=== PATIENT | female | born 1975 ===

== ENCOUNTER 2024-10-20 13:56 | Outpatient (AMB) | payer BC, SELFPAY ==
--- NOTE | 2024-10-20 14:06 | A.OFFPC_ITS ---
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 Allergies Seasonal Allergies Allergy (Verified 10/20/24 14:16) Runny Nose Tobacco use date assessed: 10/20/24 Dental Screening Dental Screen Date: 10/20/24 Did you have a dental visit in the last 12 months?: Yes Did you have a dental problem in the last 6 months where you did not have access to dental care?: No Was dental information given to patient?: Patient has dentist HPI HPI Comments History of Present Illness Details This is a 49-year-old female with a past medical history of ovarian cystectomy, migraines, seasonal allergies, anemia and leukopenia presenting to establish care. She transferred from [facility]. She is due for a physical. The patient is originally from [facility]. She tries to travel there once a year with her . She has a lump on the upper back for a couple of years. It has enlarged during the past year. Sometimes it causes mild pain. Denies paresthesias or weakness. She has no personal history of malignancy. She sees [facility] in [place], [place] - Dr. Samina Freeman. She had a mammogram in May which showed dense breast tissue. She had a follow up MRI last Sunday and is waiting for the results. She has never had a colonoscopy or Cologuard test. We discussed this at length today and the purpose to screen for colon cancer. She would like to think about it and discuss it with her before making a decision about proceeding with either test. She has no known family history of colon cancer. Dental and eye exams are up to date. ROS: Constitutional: No unexplained weight loss, fever, chills, fatigue or night sweats. Eyes: No vision changes, blurry vision, double vision, eye pain, eye redness, eye discharge. ENT: No hearing loss, sneezing, congestion, runny nose or sore throat. Respiratory: No shortness of breath, cough or sputum production. Cardiovascular: No chest pain, chest pressure or chest discomfort. No palpitations or pedal edema. Gastrointestinal: No anorexia, nausea, vomiting or diarrhea. No abdominal pain or blood in stool. Genitourinary: No dysuria, hematuria, urinary frequency. Neurologic: No headache, dizziness, syncope, unilateral weakness, ataxia, numbness or tingling in the extremities. Musculoskeletal: See HPI Hematologic/Lymphatics: No bleeding or bruising. No painful lymph nodes. Skin: No rash or itching. Endocrine: No cold or heat intolerance. No polyuria or polydipsia. Psychiatric: No depression or anxiety. No SI/HI. Physical exam: Constitutional: Alert, in no distress. Head: Normocephalic. Eyes: Pupils are equal, round and reactive to light. Extraocular muscles intact. Ear, Nose and Throat: Canals clear. TMs normal. Normal nasal mucosa. No nasal discharge. No oral lesions. Neck: Supple, Full range of motion. No lymphadenopathy. No palpable thyroid masses. Respiratory: Clear to auscultation. Cardiovascular: S1 S2 regular. No murmurs. No carotid bruits. Gastrointestinal: Abdomen soft, non-tender, non-distended. Normal bowel sounds. No palpable masses. Neurologic: No focal neurological deficits. Symmetric patellar reflexes. Moves all extremities spontaneously. Sensation intact bilaterally. Skin: No rashes Back: No midline spinal tenderness. There is 4.5 cm round, nontender, soft tissue mass on the upper back left of the spine. Extremities: Warm and well perfused. No clubbing, cyanosis or edema. 3+ peripheral pulses bilaterally. Psychiatric: Normal mood and affect [facility] Medical History (Updated 10/21/24 @ 12:42 by GEOFF Staples) Mass on back Anemia Screening for cardiovascular condition Routine physical examination Cervicalgia Lumbar disc herniation Lower back pain Ovarian cyst Social History (Updated 10/20/24 @ 14:19 by Sofy Anderson MA) Housing: House Alcohol intake: never Patient Tobacco Use Status: Never used Tobacco e-Cigarette/Vaping Use: Never Used Second Hand Smoke Exposure: No service: No Current occupational status: employed Current occupation: [employer] Current occupational exposures/hazards: No Cognitive needs: No Hearing needs: No Vision needs: No Questionnaire PHQ-9 Over the last 2 weeks, how often have you been bothered by any of the following problems? 1. Little interest or pleasure in doing things: not at all 2. Feeling down, depressed, or hopeless: not at all 3. Trouble falling or staying asleep, or sleeping too much: not at all 4. Feeling tired or having little energy: not at all 5. Poor appetite or overeating: not at all 6. Feeling bad about yourself - or that you are a failure or have let yourself or your family down: not at all 7. Trouble concentrating on things, such as reading the newspaper or watching television: not at all 8. Moving or speaking so slowly that other people could have noticed. Or the opposite - being so fidgety or restless that you have been moving around a lot more than usual: not at all 9. Thoughts that you would be better off or of hurting yourself in some way: not at all Total score: 0 Depression Screening Interpretation: Negative Depression Screening Done: Yes 32515 - PHQ-9 Billing: Yes Source: Developed by Drs. Sorin Helms, Laurence Rodriguez, Florentino Espino and colleagues, with an educational braeden from [employer]. Thrive Questionnaire Date Thrive assessed: 10/20/24 I am a: Patient What is your living situation today?: I have a steady place to live Within the past 12 months, did the food you bought not last and you didn't have the money to get more?: Never true Within the past 12 months, did you worry whether your food would run out before you got money to buy more?: Never true Do you have trouble paying for medicines?: No Do you have trouble getting transportation to medical appointments?: No Do you have trouble paying your heating and electricity bill?: No Do you have trouble taking care of your child, family member or friend?: No Are you interested in more education?: No Please select the resources that you would like help with: None Currently or been in a relationship where the following occur: No concerns reported THRIVE Score: 0 AUDIT C Alcohol Use Questionnaire (AUDIT-C) 1. How often do you have a drink containing alcohol?: Never 3. How often do you have six or more drinks on one occasion?: Never Total Score: 0 HILARY-7 AMB Questionnaire HILARY-7 Feeling nervous, anxious, or on edge: 0 = Not at all Not being able to stop or control worryin = Not at all Worrying too much about different things: 0 = Not at all Trouble relaxin = Not at all Being so restless that it is hard to sit still: 0 = Not at all Becoming easily annoyed or irritable: 0 = Not at all Feeling afraid as if something awful might happen: 0 = Not at all Total HILARY-7 score (0-4 normal; 5-9 mild; 10-14 moderate; 15-21 severe): 0 Source: Developed by Drs. Sorin Helms, Laurence Rodriguez, Florentino Espino and colleagues, with an educational braeden from [employer]. HILARY-7 Assessment Billing HILARY-7 Assessment Tool: HILARY-7 Assessment 46269 Physical exam (Primary Care) Vital Signs: Last Vital Signs Temp 98.6 F 10/20/24 14:19 Pulse 90 10/20/24 14:19 BP 98/60 10/20/24 14:19 Pulse Ox 98 10/20/24 14:19 Oxygen Delivery Method Room Air 10/20/24 14:19 BMI result Body Mass Index 21.0 Tobacco/Smoking Status: Tobacco use Status Tobacco use date assessed 10/20/24 10/20/24 14:23 Patient Tobacco Use Status Never used Tobacco 10/20/24 14:23 e-Cigarette/Vaping Use Never Used 10/20/24 14:23 PHQ-9: PHQ-9 Score PHQ-9: Total score 0 10/20/24 15:03 Depression Screening Interpretation: Negative Thrive Assessment: Date of Thrive Assessment Date Thrive assessed 10/20/24 10/20/24 14:27 Currently or been in a relationship where the following occur: No concerns reported Immunizations Boostrix Tdap 2.5 Lf unit-8 mcg-5 Lf/0.5 mL intramuscular syringe Performing Provider: GEOFF Staples Performing Location[place] [facility] Administered by: Sofy Anderson MA on 10/20/24 15:03 Dose Route Admin Location Dispensed Lot Number Expiration Date [facility] Picker Box Operator 0.5 mL IM Left Deltoid 0.5 mL [id number] 01/20/25 03505-838-98 [employer] Total Dispensed Waste 0.5 mL 0 % VIS Given Date VIS Provided VIS Publication Date 10/20/24 Single Vaccine 20 Eligibility Eligibility Date Funding Source Not [facility] Eligible 10/20/24 Private Coding Level of Care Code New Pt Prev Care 40-64y(77529) Diagnoses Routine physical examination Z00.00 Screening for cardiovascular condition Z13.6 Mass on back R22.2 Anemia D64.9 Additional Codes HILARY-7 Assessment Billing - HILARY-7 Assessment Tool: HILARY-7 Assessment 22709 ([id number]) PHQ-9 - 69430 - PHQ-9 Billing: Yes ([id number]) Assessment & Plan Assessment & Plan (1) Routine physical examination: Code(s): Z00.00 - Encounter for general adult medical examination without abnormal findings Category: Medical Plan: Patient is seen today for a routine physical. As part of this visit we reviewed the following issues, which are considered and essential part of preventative health in this age group: - Breast Cancer screening - Annual Online Journalist exam - Screening for colon cancer - Blood pressure screening - Cholesterol screening - Osteoporosis prevention including calcium/vitamin D intake, weight bearing exercise & smoking cessation - Nutritional and exercise counseling - Counseling of injury prevention including fire prevention, smoke alarms and seat belt usage - Screening for depression - Education about skin cancer - Recommendations about immunizations - Recommendation of an eye exam - Screening for substance abuse (2) Screening for cardiovascular condition: Code(s): Z13.6 - Encounter for screening for cardiovascular disorders Category: Medical (3) Mass on back: Code(s): R22.2 - Localized swelling, mass and lump, trunk Category: Medical Plan: We discussed potential etiologies including a lipoma, cyst and less likely malignancy. Proceed with ultrasound of the soft tissues for initial evaluation and referral to General surgery. (4) Anemia: Code(s): D64.9 - Anemia, unspecified Category: Medical Plan: Check labs for anemia. Plan Follow up in 1 year for annual physical exam. Orders: Orders TSH reflex Free T4 10/20/24 D64.9 - Anemia, unspecified, M54.2 - Cervicalgia, Z00.00 - Encounter for general adult medical examination without abnormal findings, Z13.6 - Encounter for screening for cardiovascular disorders Lipid Panel 10/20/24 D64.9 - Anemia, unspecified, E78.5 - Hyperlipidemia, unspecified, M54.2 - Cervicalgia, Z00.00 - Encounter for general adult medical examination without abnormal findings, Z13.6 - Encounter for screening for cardiovascular disorders Comprehensive Met. Panel 10/20/24 D64.9 - Anemia, unspecified, M54.2 - Cervicalgia, Z00.00 - Encounter for general adult medical examination without abnormal findings, Z13.6 - Encounter for screening for cardiovascular disorders IRON PROFILE 10/20/24 D64.9 - Anemia, unspecified, M54.2 - Cervicalgia, Z00.00 - Encounter for general adult medical examination without abnormal findings, Z13.6 - Encounter for screening for cardiovascular disorders Ferritin 10/20/24 D64.9 - Anemia, unspecified, M54.2 - Cervicalgia, Z00.00 - Encounter for general adult medical examination without abnormal findings, Z13.6 - Encounter for screening for cardiovascular disorders Vitamin D 25-OH (D2 and D3) 10/20/24 D64.9 - Anemia, unspecified, M54.2 - Cervicalgia, M85.80 - Other specified disorders of bone density and structure, unspecified site, Z00.00 - Encounter for general adult medical examination without abnormal findings, Z13.6 - Encounter for screening for cardiovascular disorders TDaP Immunization 10/20/24 Z23 - Encounter for immunization Vitamin B12 and Folate 10/20/24 D64.9 - Anemia, unspecified, M54.2 - Cervicalgia, Z00.00 - Encounter for general adult medical examination without abnormal findings, Z13.6 - Encounter for screening for cardiovascular disorders Complete Blood Count Auto Diff 10/20/24 D64.9 - Anemia, unspecified, M54.2 - Cervicalgia, Z00.00 - Encounter for general adult medical examination without abnormal findings, Z13.6 - Encounter for screening for cardiovascular disorders US soft tiss head and/or neck Today R22.2 - Localized swelling, mass and lump, trunk
[2024-10-20 14:19] VITALS: BP 98/60; PULSE 90; TEMP 37; O2SAT 98; BMI 21.0
--- OUTSIDE RECORDS SUMMARY | 2024-10-20 14:48 | XMS_ITS | Clinical Summary ---
Author Organization [facility] Address [address] [place] [address] Care Team Providers Care Vessel Welder Name Role Phone Te Barker MD Primary Care Provider [phone] Allergies Active Allergy Reactions Criticality Noted Date Comments Oxycodone Nausea And Vomiting 01/05/2017 Medications Medication Sig Dispensed Refills Start Date End Date Status oxyCODONE-acetaminophe n (PERCOCET) 5-325 MG per tablet Take 2 tablets by mouth every 4 (four) hours as needed for pain. 40 tablet 0 12/18/2016 Active ondansetron (ZOFRAN) 4 MG tablet Take 1 tablet (4 mg total) by mouth every 6 (six) hours as needed for nausea. 20 tablet 0 12/20/2016 Active dexamethasone (DECADRON) 4 MG tabletIndications:Lumb ar radiculopathy Take 1 tablet (4 mg total) by mouth 4 (four) times a day. 16 tablet 0 12/21/2016 Active gabapentin (NEURONTIN) 300 MG capsuleIndications:Lum bar radiculopathy, chronic Take 1 capsule (300 mg total) by mouth 2 (two) times a day. 90 capsule 1 02/23/2017 Active Active Problems Problem Noted Date Diagnosed Date Lumbar radiculopathy, right Social History Tobacco Use Types Packs/Day Years Used Date Smoking Tobacco: Never Alcohol Use Standard Drinks/Week Comments No 0 (1 standard drink = 0.6 oz pur e alcohol) Sex and Gender Information Value Date Recorded Sex Assigned at Not on file Gender Identity Not on file Sexual Orientation Not on file Last Filed Vital Signs Vital Sign Reading Time Taken Comments Blood Pressure 118/68 02/23/2017 9:18 AM EST Pulse 95 12/18/2016 11:39 AM EDT Temperature 36.1 C (97 F) 12/18/2016 11:15 AM EDT Respiratory Rate 17 12/18/2016 11:15 AM EDT Oxygen Saturation 98% 12/18/2016 11:39 AM EDT Inhaled Oxygen Concentration - - Weight 58.1 kg (128 lb) 02/23/2017 9:18 AM EST Height 152.4 cm (5') 02/23/2017 9:18 AM EST Body Mass Index 25 02/23/2017 9:18 AM EST Plan of Treatment Health Maintenance Due Date Last Done Comments Hepatitis B Vaccines (1 of 3 - 3-dose series) 1977 Hepatitis C Screening 1975 COVID-19 Vaccine (#1) 1977 Depression Screening 1989 Preventative Health Evaluation 1995 DTap / Tdap / Td (1 - Tdap) 1996 Cervical Cancer Screening (P ap Smear) 1998 Colon Cancer Screening (Colonoscopy) 2022 Influenza Vaccine (#1) 2024 Pneumococcal Vaccine Aged Out No long er eligible based on patient's age to complete this topic RSV Ped < 20 months Aged Out No longe r eligible based on patient's age to complete this topic Medical Devices Implanted Type Area Paper Colorer Device Identifier Shelf Expiration Date Model / Serial / Lot Sponge Surgiflo 8ml Hemostatic Matrix Absorbable Latex Free - [id number] - [id number] Implanted:Qty: 1 on 12/18/2016 by David Hurtado [place] [facility] Hemostatic Agent Right: Spine Lumbar [employer] 07/30/2018 [id number] / / [id number] Advance Directives For more information, please contact: [phone] Documents on File Type Date Recorded Patient Medical Office Worker Expl anation Advance Directive and Living Will 12/18/2016 6:17 AM Advance Directive and Living Will 12/18/2016 6:15 AM Care Teams Vessel Welder Relationship Specialty Start Date End Date Te Barker MD [address] [place] [address] PCP - General Internal Medicine 12/01/16
--- OUTSIDE RECORDS SUMMARY | 2024-10-20 14:48 | XMS_ITS | Clinical Summary ---
Author Organization [facility] Address [address] [place] [phone] Phone Care Team Providers Care Shoe Puller Name Role Phone Hector Matthews MD Primary Care Provider + Allergies Active Allergy Reactions Criticality Noted Date Comments Oxycodone Nausea And Vomiting 01/05/2017 Medications MULTIVITAMIN ORAL Take by mouth. Active ferrous sulfate (IRON ORAL) Take by mouth. Active ascorbic acid (VITAMIN C ORAL) Take by mouth. Active multivitamin with minerals (HAIR,SKIN AND NAILS ORAL) Take by mouth. Active ubidecarenone (CO Q-10 ORAL) Take by mouth. Active ibuprofen (ADVIL,MOTRIN) 200 MG tablet Take 200 mg by mouth every 6 (six) hours as needed for pain (specific location in comments). Active diphenhydrAMINE (BENADRYL) 25 mg tablet Take 25 mg by mouth nightly at bedtime as needed for sleep. Active vitamins A,C,E-zinc-colleen er (PRESERVISION AREDS) [id number] myph-xz-vxuf Cap Take 1 capsule by mouth 2 (two) times a day with meals. Active clindamycin (CLEOCIN T) 1 % lotion APPLY ONCE DAILY TO FACE 05/24/2020 Active sulfamethoxazol e-trimethoprim (BACTRIM DS) 800-160 mg per tablet Take 1 tablet by mouth daily. 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 Episodic treatment with Valtrex discussed with patient and her . May consider suppressive treatment if recurring lesions occur. Will provide medication for additional outbreak should it occur. Patient advised to take Valtrex 1 tab p.o. twice daily x3 days. Information on HSV provided. Cervical high risk HPV (human papillomavirus) te st positive 05/01/2018 Overview (07/12/2020): 07/2019 NIL, Neg HPV. Repeat co-testing in 1 yr. 05/2019- Neg pap, +HPV 2013, 2016 with normal pap; 2018 with ASC-H Pap smear of cervix with ASCUS, cannot exclude H GSIL 05/01/2018 Overview (05/01/2018): 2018- neg colpo biopsies and neg ECC. Tinnitus 03/06/2013 Overview (05/22/2014): Tinnitus Immunizations Immunization Administration Dates Next Due HPV9 11/17/2019,07/15/2019,05/12/2019 Family History Medical History Relation Comments Diabetes Father Type 2 with onse t ?50s --pt not close to him and doesn't know hx Tuberculosis Mother age 37 Relation Status Comments Father Alive Mother Social History Tobacco Use Types Packs/Day Years Used Date Smoking Tobacco: Never Smokeless Tobacco: Never Alcohol Use Standard Drinks/Week Comments No 0 (1 standard drink = 0.6 oz pur e alcohol) Education Answer Date Recorded Are you interested in more education? Not on ramy e 07/27/2022 Are you concerned about learning? Not on file 07/27/2022 No 07/27/2022 No 07/27/2022 Digital Access Answer Date Recorded No 08/28/2022 No 08/28/2022 No 08/28/2022 Reliable internet access at home? Not on file 08/28/2022 Device with a working camera? 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 Not on file Not on file Not on file Last Filed Vital Signs Vital Sign Reading Time Taken Comments Blood Pressure 100/62 07/05/2020 10:35 AM EDT Pulse - - Temperature - - Respiratory Rate - - Oxygen Saturation - - Inhaled Oxygen Concentration - - Weight 53.1 kg (117 lb) 07/05/2020 10:35 AM EDT Height 149.9 cm (4' 11 ) 07/05/2020 10:35 AM EDT Body Mass Index 23.63 07/05/2020 10:35 AM EDT Plan of Treatment Health Maintenance Due Date Last Done Comments Adult Td,Tdap Booster 1977 LIPID PANEL 1977 DEPRESSION SCREENING 1989 HEPATITIS C SCREENING 1995 HIV ONE-TIME SCREENING (18-65 YEARS) 1995 MAMMOGRAM 2017 PAP SMEAR 07/05/2021 07/05/2020, 05/31, 06/16/2019, Additional history exists COLOGUARD 2022 COLONOSCOPY 2022 COLORECTAL CANCER SCREENING 2022 FIT TEST 2022 FOBT 2022 SIGMOIDOSCOPY 2022 VIRTUAL COLONOSCOPY 2022 COVID-19 VACCINE ( season) 2023 2021 SMOKING STATUS SCREENING (Once After 26 Yrs) Completed 05/05/2019 HEPATITIS A VACCINES Aged Out No long er eligible based on patient's age to complete this topic HIB VACCINES Aged Out No longer eligi ble based on patient's age to complete this topic MENINGOCOCCAL VACCINES (ACWY) Aged Out No longer eligible based on patient's age to complete this topic MENINGOCOCCAL VACCINES (B) Aged Out N o longer eligible based on patient's age to complete this topic PNEUMOCOCCAL VACCINES (0-49 years) Aged Out No longer eligible based on patient's age to complete this topic Medical Devices Not on file Procedures Procedure Name Priority Date/Time Associated Diagnosis Comments PAP TEST Routine 07/05/2020 12:00 AM EDT from Last 3 Months or Most Recently Relevant to Health Maintenance Results * Pap Smear (07/05/2020 12:00 AM EDT) 07/05/2020 07/06/2020 9:4 1 AM EDT Narrative SEE NARRATIVE - 07/09/2020 4:52 PM EDT [address] [address] Twisting Frame Fixer: Kirsty Chapa MD AFTERNOON BABYSITTER Cytology Report FINAL DIAGNOSIS A. PAP SMEAR (SUREPATH) CE: SPECIMEN ADEQUACY: Satisfactory for evaluation; transformation zone present. INTERPRETATION: NEGATIVE FOR INTRAEPITHELIAL LESION OR MALIGNANCY. Electronically Signed Out By: Kirsty Chapa MD By his/her signature above, the pathologist listed as making the Final Diagnosis certifies that he/she has personally reviewed this case and confirmed or corrected the diagnosis. The Pap test is a screening test primarily for squamous cancers and precursors and has associated false-negative and false-positive results. New technologies such as liquid-based preparations may decrease but will not eliminate all false-negative results. Regular sampling and follow-up of unexplained clinical signs and symptoms are recommended to minimize false negative results. PROCEDURES/ADDENDA HPV Testing (Requested) Ordered Date: 07/06/2020 A. PAP SMEAR (SUREPATH) CE: Human Papilloma Virus Test Negative for high-risk human papillomavirus types 16, 18, 45 and the Other high risk probe set (Includes 31, 33, 35, 39, 51, 52, 56, 58, 59, 66, 68) by [employer] Onclarity HR-HPV analysis. Clinical correlation is advised. This HPV test was performed at [facility], [address] [place] [address]. This test has been FDA approved for SurePath cervical cytology specimens. The accuracy and precision of this test for all other specimen sources has been verified in the Cytopathology Laboratory of the [facility] and has not been cleared or approved by the U.S. Food and Drug Administration. Clinical correlation is advised. CLINICAL HISTORY Date of Last Menstrual Period: Not Provided Menstrual History: Unknown Infection History: HPV: OTHER HIGH RISK, 2018, 2019 Other Clinical Conditions: Screening Pap Abnormal PAP: ASCUS, 2019 SPECIMEN SOURCE A: PAP SMEAR (SUREPATH) CE Patient Name: CHAS READ : 1975 (Age: 45) Sex: F Institution: [facility] Location: [facility] Date of Collection: 07/05/2020 Date of Reported: 07/09/2020 16:52 Results to: Joyce Amado MD us Joyce Amado MD CYTOLOGY ORDERABLES Final Res ult SEE NARRATIVE from Last 3 Months or Most Recently Relevant to Health Maintenance Insurance PPO PPO BLUE CROSS OUT OF STATE PPO BLUE CROSS OUT OF [facility] PPO BLUE CROSS OUT OF STATE PPO BLUE CROSS OUT OF STATE PPO [place] CR[place] OUT OF [place] [address] [place] [id number] [address] [place] [address] [place] [id number] OUT OF STATE PPO Care Teams Shoe Puller Relationship Specialty Start Date End Date Hector Matthews MD [address] [place] [address] [address] [place] [address] PCP - General Internal Medicine 05/05/19 Additional Source Comments The information contained in this document represents components of the legal health record. It is not the complete legal health record.[facility]
--- OUTSIDE RECORDS SUMMARY | 2024-10-20 14:48 | XMS_ITS | Data Portability ---
Author Organization [place] - [facility], [facility] Address [id number] [place] [address] Care Team Providers Care Lean Leader Name Role Phone SULEMA GRANDE Primary Care Provider Assessment Encounter Date Assessment Date Assessment LastModified by Organization Details LastModified Time 02/06/2023 02/06/2023 Patient is a 47y o female presents for pre-op exam Patient is a 59yo female plan to undergo robotic assisted total laproscopic hysterectomy, BSO, possible ex-lap and cysto for fibroi uterus and left ovarian cyst - I reviewed the procedure as removal of the uterus, tubes, and cervix. Discussed oopherectomy of at least the left ovary given cyst but patient states she would like to undergo BSO. Patient is menopausal so I do not think this approach is unreasonable but discussed the potential effects on bone, VB, and neurocognitive health. Discussed reduce risk of breast and ovarian cancer with BSO. Discussed re-operation rate approx 10% if R ovary left in-situ; patient will consider but likely wants both ovaries removed. - Discussed cyst of left ovary is likely benign given stability of size, no increased CF and simple appearance and normal TM unlikely to be malignancy but only definitive way to determine is through tissue dx following removal. Patient is aware that she may need additional surgeries in the future if ovarian mass borderline or malignant. -I recommended the robotic laproscopic approach. Discussed risks including bleeding, infection, damage to surrounding structures including bowel, bladder, ureters, prolonged hospital stay, need for blood transfusion, DVT, and . Patient in agreement with plan. - Preop bloodwork within 2-3 days of surgery at a [facility] - Pre-op clearance indicated. Patient is aware she must schedule and be within 30 days of surgery. - Patient strongly desires to go home day of surgery. Pt reports she has a hx of difficulty waking up from anesthesia in that past. States she is very sensitive to narcotics. 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 Discussed post-op expectations nothing in vagina for 12wks, no swimming, baths, carrying nothing heavier than milk carton. - Consent formed signed in office. To be scanned into computer. - All questions answered to patient's satisfaction. - Plan to send scripts for Tramadol, Motrin and Colace. Total Time on date of the encounter: __45___ minutes Obtain a patient history and/or review a separately obtained history: __5___ minutes Reviewing patient s lab/radiology/sony t results: _5____ minutes Discussing Treatment options with patient/family/ca regiver: __5___ minutes Counseling and education of the patient/family/ca regiver: __15___ minutes Updating/document ing clinical information in the patient s medical record: __5___ minutes agurall Not available 02/12/2023 16:54:30 Plan of Treatment Reminders Order Date Submit Date Provider Last Modified By Organization Details Last Modified Time Details 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 Procedures None recorded. Surgeries None recorded. Imaging MAMMO, screening , digital, bilateral , w/ CAD 2023 024 [email or web address] [facility] (Radiology), [address] [place], [address], 02/04/2024 08:46:35 MAMMO, screening , digital, bilateral , w/ CAD 2023 024 [email or web address] [facility], [address] [place], [address], 01/21/2024 09:40:31 Medication Orders None recorded. Patient TargetsNo targets recorded. Patient Instructions Encounter Date Encounter Id Patient Instructions Last Modified By Organization Details Last Modified Time 07/09/2023 [id number] Pt with ovarian cyst. Opted to cancel surgery and observe It was stable in size and she is asymptomatic repeat USN for size RTC for annual No charge for exam, shouldn't have had to come in to schedule a pelvic USN Not available 07/09/2023 11:49:53 01/14/2024 [id number] mammogram: about this test Not available 01/14/2024 11:29:05 tips to help you stay healthy Not available 01/14/2024 11:29:05 uterine fibroids : care instructions Not available 01/14/2024 11:29:05 Stable pelvic exam (fibroid & left ovarian cyst) Confirm size/stability with USN Proceed with surgery with any increases (pt is PM) PAP/HPV sent Colpo prn Menopausal: No issues BSE reviewed MGM overdue Colonoscopy recommended RTC annual/prn Not available 01/14/2024 12:39:19 01/28/2024 [id number] mammogram: about this test Not available 01/28/2024 14:09:58 abnormal Pap test: care instructions Not available 01/28/2024 14:07:18 Colpo for ASCUS/HPV+ Impression: atrophy/HPV Await path If < or = PAUL 1: PAP q 6 months If > or = PAUL 1: LEEP Precautions reviewed present for entire procedure Not available 01/28/2024 14:13:08 08/04/2024 [id number] Pt here for repeat PAP Hx of ASCUS/HPV+ Colpo neg Call with results Repeat PAP at annual in 6 months unless > ASCUS Not available 08/04/2024 12:36:54 Reason for Referral None Reported. 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 #2- ENDOC ERVIX , CURET TAGE: - ENDOC ERVIC AL GLAND ULAR MUCOS A, NEGAT MITCHELL FOR DYSPL FATUMA. Comme nt: - Note is made of the detec tion of high risk HPV DNA which warra nts fidencio nued clini nia follo w up. Elect noemi Lopez d: STUART GURROLA RET, MD ----- ----- ----- ----- ----- ----- ----- ----- ----- ----- ----- ----- Clini nia Diagn osis and Histo ry: Abnor mal cervi nia pap smear Gross Descr iptio n: #1- Conta iner label ed with the patie nt's name TJ READ noted 11:0 0 . Speci men is recei meli in forma alen and consi sts of 1 piece of soft cho tissu e fragm ent measu ring 0.3 x 0.2 x 0.2 cm which is submi tted in toto in 1 casse tte(s ) label ed 1A. #2- Conta iner label ed with the patie nt's name TJ READ noted ECC. Speci men is recei meli in forma alen and consi sts of irreg ular tissu e fragm ents admix ed with mucus and blood measu ring 0.2 cc which are filte red and submi tted in toto in 1 casse tte(s ) label ed 2A. CPT Codes : #1- 80099 #2- 29869 ICD Codes : #1- R87.6 19 #2- R87.6 19 Not Available [facility] [address] [place], [address] 01/09/2023 13:37:00 01/09/20 23 01/08/2023 pregn jamarcus test, urine Result negati ve Not Available In-Office Order Internal Use Only DO Not Attach Compendium DO Not Attach Compendium, Do Not Delete/merge, [id number] 01/08/2023 14:19:57 01/14/20 24 01/14/2024 HPV MRNA E6/E7 HPV MRNA E6/E7 Positi ve negati ve abnormal APTIM A HPV assay detec ts 14 high risk HPV types (HPV 16,18 ,31,3 3,35, 39,45 ,51,5 2,56, 58,59 ,66,6 8). The assay is FDA appro meli for testi ng ThinP rep liqui d Pap vials but not FDA appro meli for detec ting HPV in SureP ath liqui d Pap speci mens. In-ho use valid ation has shown the assay can detec t all HPV types from this sourc e Not Available [facility] [address] [place], [address] 01/22/2024 10:10:01 01/14/20 24 01/14/2024 THINP REP PAP TEST (IMAG ER), HPV SCREE N, REFLE X HPV 16,18 /45 report Report abnormal Final Gynec ologi nia Cytol ogy Repor t ----- ----- ----- ----- ----- ----- ----- ----- ----- ----- ----- ----- ThinP rep Pap Test, HPV Scree n, Refle x HPV Genot ype SPECI MEN ADEQU ACY: SATIS FACTO RY FOR EVALU ATION ; ENDOC ERVIC AL/TR ANSFO RMATI ON ZONE COMPO NENT PRESE NT. INTER PRETA TION: ATYPI NIA SQUAM OUS CELLS OF UNDET ERMIN ED SIGNI FICAN CE. Scant cellu larit y Elect noemi Lopez d: Rocky Angel [place] ([facility] ) Elect noemi Lopez d: CANDIDO GOMEZ MD ----- ----- ----- ----- ----- ----- ----- ----- ----- ----- ----- ----- CLINI NIA INFOR MATIO N: LMP: NG Clini nia Histo ry: NG Biops y Date: NG Speci men [facility] e: Cervi x, Endoc ervix Previ ous Pap Date: NG HPV RESUL TS: HPV mRNA E6/E7 [id number] 32771 Appro meli: 01/14 Posit mitchell REF RANGE : Negat mitchell CPT Codes : 47836 , 68995 ICD Codes : Z01.4 19 Not Available [facility] [address] [place], [address] 01/22/2024 10:10:05 01/28/20 24 01/28/2024 TISSU E report Report Final Patho ashlie flanagan FINAL DIAGN OSIS: #1 CERVI NIA BIOPS Y 2:00: VERY SCANT FRAGM ENT OF SQUAM OUS EPITH ELIUM ; NEGAT MITCHELL FOR DYSPL FATUMA. #2 CERVI NIA BIOPS Y 4:00: SQUAM OUS MUCOS A; NEGAT MITCHELL FOR DYSPL FATUMA. #3 ENDOC ERVIC AL CURET TAGE: VERY SCANT SQUAM OUS AND ENDOC ERVIC AL CELLS ; NEGAT MITCHELL FOR DYSPL FATUMA. Comme nt: The patie nt's prior Pap smear from 01/13 is noted , inter prete d as atypi nia squam ous cells with posit mitchell HPV. Clini nia follo w salty devine. The 4:00 biops y was revie wed by Dr. Carlos siu, who concu rs. Elect noemi Lopez d: Kirsty Calixto MD Clini nia Diagn osis and Histo ry: Atypi nia squam ous cells of undet ermin ed signi fican ce on cervi nia pap smear Gross Descr iptio n: #1 Conta iner label ed with the patie nt's name TJ CARMONA noted CXBX @2:00 . Speci men is recei meli in forma aeln and consi sts of mucus and blood measu ring 0.1 cc which are filte red and submi tted in toto in 1 casse tte(s ) label ed 1A. The speci men may not survi ve proce ssing . #2 Conta iner label ed with the patie nt's name TJ CARMONA noted CXBX @4:00 . Speci men is recei meli in forma alen with a appli catio n stick and consi sts of 1 piece of soft cho tissu e fragm ent measu ring 0.2 x 0.1 x 0.1 cm which is submi tted in toto in 1 casse tte(s ) label ed 2A. #3 Conta iner label ed with the patie nt's name TJ CARMONA noted ECC. Speci men is recei meli in forma alen and consi sts of mucus and blood measu ring 0.1 cc which are filte red and submi tted in toto in 1 casse tte(s ) label ed 3A. The speci men may not survi ve proce ssing . CPT Codes : #1 58129 #2 21496 #3 16167 ICD Codes : #1 R87.6 10 #2 R87.6 10 #3 R87.6 10 Not Available [facility] [address] [place] [address], [address] 01/31/2024 10:17:27 08/05/19 25 08/04/2024 THINP REP PAP TEST (IMAG ER), HPV JACOBO N, REFLE X HPV 16,18 /45 report Report Final Gynec ologi nia Cytol ogy Repor t ----- ----- ----- ----- ----- ----- ----- ----- ----- ----- ----- ----- ThinP rep Pap Test, HPV Scree n, Refle x HPV Genot ype SPECI MEN ADEQU ACY: SATIS FACTO RY FOR EVALU ATION ; ENDOC ERVIC AL/TR ANSFO RMATI ON ZONE COMPO NENT PRESE NT. INTER PRETA TION: NEGAT MITCHELL FOR INTRA EPITH ELIAL CHARLENE Carey OR NITHIN ADAMS . Elect noemi Lopez d: Aby Ugalde CT ([facility] ) Elect noemi Lopez d: Yolanda Wade, [place] ([facility] ) ----- ----- ----- ----- ----- ----- ----- ----- ----- ----- ----- ----- CLINI NIA INFOR MATIO N: LMP: NG Clini nia Histo ry: NG Biops y Date: NG Speci men Sourc e: Cervi x, Endoc ervix Previ ous Pap Date: NG HPV RESUL TS: HPV mRNA E6/E7 75569 55392 Appro meli: 08/05 Negat mitchell REF RANGE : Negat mitchell CPT Codes : 50677 ICD Codes : R87.6 10 Not Available [facility] [address] [place], [address] 08/08/2024 09:21:55 08/05/19 25 08/04/2024 HPV MRNA E6/E7 HPV MRNA E6/E7 Negati ve negati ve APTIM A HPV assay detec ts 14 high risk HPV types (HPV 16,18 ,31,3 3,35, 39,45 ,51,5 2,56, 58,59 ,66,6 8). The assay is FDA appro meli for testi ng ThinP rep liqui d Pap vials but not FDA appro meli for detec ting HPV in SureP ath liqui d Pap speci mens. In-ho use valid ation has shown the assay can detec t all HPV types from this sourc e Not Available [facility] [address] [place], [address] 08/08/2024 09:22:02 07/17/19 24 07/17/2023 US, pelmeredith s, compl ete RAD [id number] [facility] [address], [place], [address], 07/23/2023 11:21:35 02/11/20 24 02/05/2023 MAMMO , scree kathryn, digit al, bilat eral, w/ CAD No observ ation record ed. [address] [place], [address], 02/12/2024 10:53:15 02/12/20 24 02/11/2024 MAMMO , scree kathryn, digit al, bilat eral, w/ CAD No observ ation record ed. [address] (Radiology) [address] [place], [address], 02/14/2024 09:54:57 02/18/20 24 02/18/2024 US, pelvi s, compl ete RAD [facility] [employer] [facility] [id number] 03/04/2024 12:31:21 04/28/19 25 04/28/2024 US, breas t, bilat eral No observ ation record ed. [address] [facility] [address], [place], [address], 05/07/2024 14:22:58 05/12/19 25 05/12/2024 biops y, breas t, w/ ultra sound rashmi nce (PROC ) No observ ation record ed. [email or web address] [facility] [address], [place], [address], 05/21/2024 16:30:22 05/12/19 25 05/12/2024 biops y, breas t, w/ ultra sound rashmi nce (PROC ) No observ ation record ed. [email or web address] [facility] [address], [place], [address], 05/21/2024 16:30:28 05/16/19 25 05/16/2024 biops y, breas t, w/ ultra sound rashmi nce (PROC ) No observ ation record ed. 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 Histor y of unspec ified lump right subare olar breast . Histor y of abnorm al inconc lusive findin gs on diagno stic imagin g. On patien t MRI questi onnair e, patien t report s a right breast biopsy Februa ry 2024 and last mammog briseyda in 2024. COMPAR ROBINSON: No priors availa ble at the time of this interp retati on. TECHNI QUE: Utiliz ing a high-f ield scanne r and dedica faiza breast coil, and prior to the admini strati on of contra st, multip lanar locali zer images were obtain ed. Bilate ral axial T1-abby ghted sequen balbina withou t fat-sa turati on and fat-sa turate d axial T2-abby ghted sequen balbina were acquir ed. Before and after the admini strati on of contra st, multip le sequen tial dynami c T1-abby ghted VIBRAN T sequen balbina were obtain ed throug h both breast s in the axial plane with fat-sa turati on. Subtra cted images were obtain ed and review ed. CAD postpr ocessi ng with 3-D recons tructi ons, maximu m intens ity projec tions and kineti c analys is was perfor med by the interp reting radiol ogist at an indepe ndent workst ation and review ed as a portio n of this exam. CONTRA ST DOSE: The patien t receiv ed [address] intrav enousl y withou t incide nt. FINDIN GS: Motion artifa ct limits exam. Bilate rally, the patien ts breast tissue is extrem diana dense. The tissue underg oes modera te backgr ound enhanc ement. *Motio n Correc faiza postco ntrast series 3100- with substr action applie d on DynaCa d.* LEFT BREAST : No suspic ious enhanc ement. Scatte red foci of enhanc ement is benign backgr ound parenc hymal enhanc ement. No suspic ious findin gs in the left breast on MRI. RIGHT BREAST : No suspic ious enhanc ement. Scatte red foci of enhanc ement is benign backgr ound parenc hymal enhanc ement. Suscep tibili ty artifa ct outer breast likely reflec ts biopsy clip with surrou nding benign -appea ring postbi opsy change . Nipple and subare olar breast and skin are unrema rkable . No suspic ious findin gs in the right breast on MRI. The axilla ry lymph nodes are morpho logica lly normal . 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 The imaged portio ns of the chest and upper abdome n are grossl y unrema rkable . IMPRES ELIN: No suspic ious findin gs in either breast , howeve r final assess ment is pendin g compar robinson with priors . ASSESS MENT: BI-RAD S 0: Incomp lete: Priors Needed . RECOMM ENDATI ONS: Compar robinson with priors . 1. Our depart ment has reques faiza the patien ts prior breast imagin g. 2. Once receiv ed, compar robinson will be made with an addend um to this report . Electr onical ly signed by: Syed saravia MD 2024 03:36 PM EDT RP Workst ation: [id number] Thank you for referr ing your patien t to us, Syed saravia [place] [phone] (Elect petra leydi Signed - 2024 15:36) Copy: GREER FREEMAN MD [facility] [address] [place] [address] [phone] JEFRY Flanagan , [facility] ([facility]) [address] [address], [place], [address], 10/15/2024 17:44:56 Result Notes Documentation Provider Name and Address Organization Details Recorded Time Mri, Breast, Bilateral, W/wo Contrast : EXAMINATION: MR BREAST WITHOUT AND WITH CONTRAST, BILATERAL INDICATION: High-risk screening MRI CLINICAL INFORMATION: 49-year-old with history of syringometous tumor right breast and dense breasts. History of unspecified lump right subareolar breast. History of abnormal inconclusive findings on diagnostic imaging. On patient MRI questionnaire, patient reports a right breast biopsy May 2024 and last mammogram in 2024. COMPARISON: No priors available at the time of this interpretation. TECHNIQUE: Utilizing a high-field scanner and dedicated breast coil, and prior to the administration of contrast, multiplanar localizer images were obtained. Bilateral axial T1-weighted sequences without fat-saturation and fat-saturated axial T2-weighted sequences were acquired. Before and after the administration of contrast, multiple sequential dynamic T1-weighted VIBRANT sequences were obtained through both breasts in the axial plane with fat-saturation. Subtracted images were obtained and reviewed. CAD postprocessing with 3-D reconstructions, maximum intensity projections and kinetic analysis was performed by the interpreting radiologist at an independent workstation and reviewed as a portion of this exam. CONTRAST DOSE: The patient received 5 mL of Gadavist intravenously without incident. FINDINGS: Motion artifact limits exam. Bilaterally, the patients breast tissue is extremely dense. The tissue undergoes moderate background enhancement. *Motion Corrected postcontrast series 3100- with substraction applied on DynaCad.* LEFT BREAST: No suspicious enhancement. Scattered foci of enhancement is benign background parenchymal enhancement. No suspicious findings in the left breast on MRI. RIGHT BREAST: No suspicious enhancement. Scattered foci of enhancement is benign background parenchymal enhancement. Susceptibility artifact outer breast likely reflects biopsy clip with surrounding benign-appearing postbiopsy change. Nipple and subareolar breast and skin are unremarkable. No suspicious findings in the right breast on MRI. The axillary lymph nodes are morphologically normal. No suspicious internal mammary lymph nodes are seen. The imaged portions of the chest and upper abdomen are grossly unremarkable. IMPRESSION: No suspicious findings in either breast, however final assessment is pending comparison with priors. ASSESSMENT: BI-RADS 0: Incomplete: Priors Needed. RECOMMENDATIONS: Comparison with priors. 1. Our department has requested the patients prior breast imaging. 2. Once received, comparison will be made with an addendum to this report. Electronically signed by: Jo Santiago MD 10/15/2024 03:36 PM EDT RP Thank you for referring your patient to us, Jo Santiago MD [phone] (Electronically Signed - 10/15/2024 15:36) Copy: TAMIKA FREEMAN MD [facility] [address] [address] PATIENT , TAMIKA FREEMAN MD [address], [place], [address], [facility] 10/15/2024 17:44:56 Problems No Known Problems Procedures Surgical History Date Name Laterality Status Provider Name and Address Organization Details Recorded Time 5 Date of Last Pap Smear completed TAMIKA FREEMAN MD [address], [place], [address], [facility] 08/08/2024 10:46:05 4 Date of Last Mammogram completed TAMIKA FREEMAN MD [address], [place], [address], [facility] 02/13/2024 09:57:49 4 Colposcopy Procedure Note completed TAMIKA FREEMAN MD [address], [place], [address], [facility] 01/28/2024 14:12:10 4 Colposcopy completed TAMIKA FREEMAN MD [address], [place], [address], [facility] 01/31/2024 10:47:57 3 Colposcopy Procedure Note completed TAMIKA FREEMAN MD [address], [address] [facility], [place], [address], [facility] 01/08/2023 14:57:29 3 Endometrial Biopsy Procedure Note completed LEELA RAMIRES MD 175 [facility], [address] [place] [address], [place], [address], [facility] 10/23/2022 13:37:17 7 Unlisted procedure spine completed TAMIKA FREEMAN MD 175 [facility], [address] [place] [address], [place], [address], [facility] 10/17/2021 12:12:00 7 Other completed Rachel Cortes [facility] 02/27/2022 11:38:14 5 removal of ovarian cyst completed TAMIKA FREEMAN MD 175 [facility], [address] [place] [address], [place], [address], [facility] 10/17/2021 12:12:39 Imaging Results None recorded. Procedure Notes None recorded. Medical Equipment None Reported. Allergies No known drug allergies Medications Name Sig Start Date Stop Date Status Note LastModified by Organization Details LastModified Time medroxyprog esterone 10 mg tablet TAKE 1 TABLET BY MOUTH EVERY DAY FOR 10 DAYS active Not Available Not Available No t Available triamcinolo ne acetonide 0.5 % topical cream APPLY TO AFFECTED AREA TWICE A DAY active Not Available Not Available No t Available ibuprofen 800 mg tablet TAKE 1 TABLET 3 TIMES A DAY BY ORAL ROUTE. active Not Available Not Available No t Available prednisone 20 mg tablet TAKE 3 TABS DAILY FOR 3 DAYS, 2 TABS DAILY FOR 3 DAYS, 1 TAB DAILY FOR 3 DAYS 09/04 completed Not Available Not Available Not Available valacyclovi r 500 mg tablet TAKE 1 TABLET BY MOUTH EVERY DAY active Not Available Not Available No t Available sulfamethox azole 800 mg-trimetho prim 160 mg tablet TAKE 1 TABLET BY MOUTH EVERY DAY 10/17 completed Not Available Not Available Not Available tramadol 50 mg tablet TAKE 1 TABLET BY MOUTH EVERY 6 HOURS NEEDED active Not Available Not Available No t Available triamcinolo ne acetonide 0.1 % topical cream APPLY FROM NECK DOWN AFTER SHOWER. PATIENT TO MIX WITH 1 POUND CERAVE CREAM. 09/04 completed Not Available Not Available Not Available prednisolon e acetate 1 % eye drops,suspe nsion INSTILL 1 DROP INTO BOTH EYES 3 TIMES DAILY FOR 1 MONTH 10/17 completed Not Available Not Available Not Available tacrolimus 0.1 % topical ointment Apply TO affected AREAS TWICE A DAY FOR 2-4 WEEKS 09/04 completed Not Available Not Available Not Available docusate sodium 100 mg capsule TAKE 1 CAPSULE BY MOUTH EVERY DAY active Not Available Not Available No t Available hydrocortis one 2.5 % topical ointment APPLY THIN COAT TO AFFECTED AREA TWICE A DAY 09/04 completed Not Available Not Available Not Available ID NOW COVID-19 Test Kit DIRECTED 10/17 completed Not Available Not Available Not Available COVID-19 test specimen collection TEST DIRECTED TODAY 10/17 completed Not Available Not Available Not Available Vitals Date Recorded Body height Body mass index (BMI) Body weight Systolic And Diastolic Provider Name and Address Organization Details Last Updated DateTime 08/04/2024 152.4 cm 21.1 kg/m2 44942.98 g 96/60 mm[Hg] Dayami Jesus [facility] 08/04/2024 11:24:43 Date Recorded Body height Body mass index (BMI) Body weight Systolic And Diastolic Provider Name and Address Organization Details Last Updated DateTime 01/14/2024 152.4 cm 20.5 kg/m2 82853.2 g 96/60 mm[Hg] Rachel Lamb [facility] 01/14/2024 11:19:27 Date Recorded Body height Body mass index (BMI) Body weight Systolic And Diastolic Provider Name and Address Organization Details Last Updated DateTime 01/28/2024 152.4 cm 20.6 kg/m2 22199.64 g 110/66 mm[Hg] Marylu Rodriguez [facility] 01/28/2024 13:54:30 Date Recorded Body height Body mass index (BMI) Body weight Systolic And Diastolic Provider Name and Address Organization Details Last Updated DateTime 02/06/2023 152.4 cm 23.2 kg/m2 26585.49 g 110/60 mm[Hg] Wei Sanders [facility] 02/06/2023 12:33:02 Social History Question Answer Notes LastModified by Organizat ion Details LastModified Time Tobacco Smoking Status Never Smoker Wei Sanders [facility] 10/23/2022 12:03:22 Does Your Partner Physically Hurt You Or Threaten To Hurt You? No Information not available 09/04/2022 Has Your Partner Forced You To Have Sex Or Perform Sex Acts When You Did Not Want To? No Information not available 09/04/2022 Does Your Partner Insult, Scream At Or Talk Down To You? No Information not available 09/04/2022 Does Your Partner Control You Or Any Part Of Your Life? No Information not available 09/04/2022 Are You Afraid Of Your Partner? No Information not available 09/04/2022 Do You Feel Safe At Home? Yes Information not available 09/04/2022 How Much Tobacco Do You Smoke? No Information not available 10/23/2022 How Many Years Have You Smoked Tobacco? 0 Information not available 10/23/2022 Have You Recently Traveled Abroad? No Information not available 10/23/2022 Sex: Female Functional Status None recorded. Mental Status None recorded. Family History Relationship Description Onset Age of this Age Resolved Age Notes LastModified by Organization Details LastModified Time Father No current problems or disability Not available 10/17 12:10:44 Mother No current problems or disability Not available 10/17 12:10:44 Medical History No medical history recorded. Gynecological History Statement/Question Response BrCa Positive N Infertility N Date of Last Mammogram 02/07/2024 Date of LMP 03/02/2021 Breast Biopsy Yes IPV Screen Done 01/14/2024 Breast Ultrasound Yes Colposcopy 01/28/2024 HPV Vaccine Y Endometriosis N Fibroids N Cervical Cancer N Uterine Cancer N BrCa gene tested? N Current Control Method Menopause Ovarian Cancer N Breast Cancer N Mammogram Required? Sexually Active? N Sexual Problems? N Date of Last Pap Smear 08/04/2024 Obstetrics History GPAL:G 0 P 0 0 0 0 Past Encounters Encounter ID Performer Location Encounter Start Date Encounter Closed Date Diagnosis/Indication Diagnosis SNOMED-CT Code Diagnosis ICD10 Code Diagnosis Note [id number] TAMIKA FREEMAN MD [facility] [address] [place] [address] 10/17/2021 11:03:27 10/17/2021 11:42:43 Gynecologic examination 17108780 Z01.419 Amenorrhea 50070148 N91. 2 [id number] MD MELISSA SAWYERO5 [address] [place] [address] 8 02/27/2022 11:26:44 03/06/2022 12:48:40 Menopausal symptom 81761067 N95.1 Uterine leiomyoma 331333 05 D25.9 Cyst of left ovary 18870 48018 1954068 N83.202 [id number] MD MELISSA SAWYERO5 [address] [place] [address] 07/17/2022 13:14:41 07/17/2022 13:36:56 Pruritus of vulva 51629436 L29.2 [id number] MD CARLA BARFIELD [address] [place] [address] 09/04/2022 12:08:09 09/04/2022 13:43:28 Cyst of left ovary 0047954508 4827649 N83.202 Uterine leiomyoma 371612 05 D25.9 Increased frequency of urination 026121614 R35.0 [id number] MD CARLA BARFIELD [address] [place] [id number] 10/23/2022 12:01:24 10/23/2022 12:36:23 Uterine leiomyoma 28267693 D25.9 Screening for malignant neoplasm of cervix 735746697 Z12.4 Pre-surger y evaluation 427660149 Z01.818 [id number] MD MELISSA SAWYERO5 [address] [place] [address] 01/08/2023 14:07:52 01/08/2023 14:38:09 Abnormal cervical Papanicolaou smear 558232174 R87.619 [id number] MD MELISSA SAWYERO5 [address] [place] [address] 01/29/2023 11:07:31 01/30/2023 08:41:59 Screening mammography 78266274 Z12.31 Pruritic disorder 988348 002 L29.9 [id number] LEELA RAMIRES MD [facility] [address] [address] 02/06/2023 12:26:49 02/06/2023 13:23:00 [id number] TAMIKA FREEMAN MD [facility] [address] [place] [address] 07/09/2023 11:38:54 07/09/2023 11:53:21 Cyst of ovary 65602351 N83.209 [id number] TAMIKA FREEMAN MD [facility] [address] [place] [address] 01/14/2024 11:07:24 01/14/2024 14:24:41 Gynecologic examination 53317824 Z01.419 Uterine leiomyoma 068000 05 D25.9 Screening mammography 24 923039 Z12.31 Cyst of left ovary 64046 72122 7991801 N83.202 [id number] TAMIKA FREEMAN MD [facility] [address] [place] [address] 01/28/2024 13:39:42 01/28/2024 14:25:00 Atypical squamous cells of undetermined significance on cervical Papanicolaou smear 410377038 R87.610 Screening mammography 24 016278 Z12.31 [id number] TAMIKA FREEMAN MD [facility] [place] [address] 08/04/2024 11:20:20 08/04/2024 13:40:52 Cervical atypism 71968225 R87.610 Health Concerns Section Related Observation LastModified by Organization Detai ls LastModified Time None Recorded Concern Status LastModified by Organization Details LastModified Time None Recorded Advance Directives Directive None Recorded Payers Insurance Date Sequence Insurance Name Policy Number Policy Coelho Covered Member ID Coelho Member ID Guarantor Name 08/15/2024 1 [place] [facility] [id number] Krishna Read [id number] Gaurav Read Notes Date Note Type Note Provider Name and Address Organization Details Recorded Time 02/06/2023 text/html Patient is a 47y o female presents for pre-operative visit. She is feeling well. Nervous for upcoming surgery. She has had no changes in medical health. She is scheduled for pre-op visit with PCP. She does not take any medications regularly. Denies ASA, NSAID use. Patient states she would like both ovaries removed at time of hysterectomy Patient reports she is menopausal. Has not had any VB in >1yr year. This has also been confirmed with bloodwork.States she has symptoms of urinary frequency for many year. No incontinence but has increased frequency. She has no pelvic pain or pressure. She has no issues with BM.She has hx of ovarian cysts and had cystectomy years ago but is not sure which side it was on. Her most recent 12/05/22 USN findings:-Retrover faiza uterus-3cm anterior fibroid impinging on bladder-4cm fundal fibroid-3.5 fibroid-3cm complex L ovarian cyst (?cyst within a cyst) All findings are stable from prior USN on 05/02 and 02/21 and 08/22 Tumor Markers:CA 19-9: 44Ca 125: 8CEA: WNL -10/23/22 Pap: NILM, HPV HR +, s/p colpo on 01/08/23 with negative biopsies. Negative ECC.- 10/23/22 EMB: Negative EAC/EIN LEELA RAMIRES MD [address] [place] [address], [address] Floor, [place], [address], [place] [facility] 02/12/2023 16:54:43 01/14/2024 text/html [facility] Annual GYNReported bypatient.Menstrua l cycle:postmenopaus al Urinary symptoms:No hematuria; No incontinence Vulva:No genital lesion Vagina:Normal vaginal discharge Breast:No breast pain; No breast lump; No nipple discharge Sexual activity:sexually active yes ; No sexual complaints; No pain during intercourse; Normal libido Menopausal symptoms:No menopausal symptoms; Normal vaginal lubrication Psychological symptoms:No depression; No anxiety; No PMDD Pt with known fibroid and LEFT ovarian cyst. Was scheduled for surgery last year (TRLHBSO), but changed her mind and is following on USN. She has no sxs. No PMB, TAMIKA FREEMAN MD [address] [facility], [address] [place] [address], [phone], [facility] 01/14/2024 12:39:45 01/28/2024 text/html Pt here for colp o. Hx of abnormal PAP's & colpoRecent PAP was ASCUS/HPV+Tobacco: No TAMIKA FREEMAN MD [address] [facility], [address] [place] [address], [phone], [facility] 01/28/2024 14:13:20 08/04/2024 text/html Pt here for repe at PAP smear. PAP 01/23: ASCUS/HPV+, colpo bx negative.Has Breast MRI scheduled and saw the breast surgeon. TAMIKA FREEMAN MD [address] [facility], [address] [place] [address], [phone], [facility] 08/04/2024 12:37:44 OBGyn Episode No OBEpisode recorded.
--- OUTSIDE RECORDS SUMMARY | 2024-10-20 14:48 | XMS_ITS | Clinical Summary ---
Author Organization [facility] Address [address] [place] [address] Care Team Providers Care Community Service Aide Name Role Phone Tamika Green MD Unavailable [phone] Bk Kerr MD Primary Care Provider [phone] Allergies Active Allergy Reactions Criticality Noted Date Comments Oxycodone Nausea And Vomiting 01/05/2017 Pseudoephedrine-Guaifenesin Other (See Comments) 02/27/2023 Medications VITAMIN D PO Take by mouth. Ac tive triamcinolone (KENALOG) 0.5 % creamIndication s:Lesion of right nipple Apply topically 2 (two) times a day. 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 Travel 07/21/2024 Telephone [facility] [address] [address] Myah Tapia MD from Last 3 Months Social History Tobacco Use Types Packs/Day Years Used Date Smoking Tobacco: Never Smokeless Tobacco: Never Tobacco Cessation:Counseling Given: Not Answered Alcohol Use Standard Drinks/Week Comments Never 0 (1 standard drink = 0.6 oz pur e alcohol) Comments No Sex and Gender Information Value Date Recorded Sex Assigned at Female 07/20/2024 11:02 AM EDT Legal Sex Female 8:22 AM EDT Gender Identity Female 07/21/2024 11:35 AM EDT Sexual Orientation Not on file Last Filed Vital Signs Vital Sign Reading Time Taken Comments Blood Pressure - - Pulse 68 07/22/2024 10:36 AM EDT Temperature - - Respiratory Rate - - Oxygen Saturation - - Inhaled Oxygen Concentration - - Weight 49 kg (108 lb) 07/22/2024 10:36 AM EDT Height 152.4 cm (5') 07/22/2024 10:36 AM EDT Body Mass Index 21.09 07/22/2024 10:36 AM EDT Plan of Treatment Health Maintenance Due Date Last Done Comments Hepatitis C Virus Screening 1977 HIV Screening 1990 DTaP/Tdap/Td Vaccines (1 - Tdap) 1996 Hepatitis B Vaccines (1 of 3 - 19+ 3-dose series) 1996 Mammogram 2017 Colonoscopy 2022 COVID-19 Vaccine (1 - 2023-2 5 season) 2023 Influenza Vaccine 10/31/2024 Pap Smear (Ages 21-65) 08/05/2027 , 01/14/2024, 10/23/2022 Pneumococcal Vaccine: Pediatric (0-5 Years) and At-Risk Patients (6 to 49 Years) Aged Out No longer eligible b ased on patient's age to complete this topic Procedures Procedure Name Priority Date/Time Associated Diagnosis Comments MRI BREAST W W/O CONTRAST-BILATERAL Routine 10/14/2024 11:24 AM EDT Dense breast Lesion of right nipple Subareolar mass of right breast Abnormal ultrasound of breast Syringoma of trunk THINPREP PAP(FORESTRY ENGINEER) HPV SCR RFX HPV 16,18/45 Routine 08/04/2024 11:37 AM EDT from Last 3 Months Results * MRI Breast w w/o contrast-Bilateral (10/14/2024 11:24 AM EDT) Anatomical Region Laterality Modality Breast Bilateral Magnetic Resonan ce 10/14/2024 10:3 0 AM EDT 10/14/2024 10:30 AM EDT Impressions 10/15/2024 3:36 PM EDT No suspicious findings in either breast, however final assessment is pending comparison with priors. ASSESSMENT: BI-RADS 0: Incomplete: Priors Needed. RECOMMENDATIONS: Comparison with priors. 1. Our department has requested the patients prior breast imaging. 2. Once received, comparison will be made with an addendum to this report. Electronically signed by: oJ Santiago MD 10/15/2024 03:36 PM EDT Thank you for referring your patient to us, Jo Santiago MD [id number] (Electronically Signed - 10/15/2024 15:36) Copy: TAMIKA GREEN MD [facility] [address] [address] PATIENT , Narrative 10/15/2024 3:36 PM EDT EXAMINATION: MR BREAST WITHOUT AND WITH CONTRAST, [...] chest and upper abdomen are grossly unremarkable. Procedure Note Jo Santiago MD - 10/15/2024 EXAMINATION: MR BREAST WITHOUT AND WITH CONTRAST, BILATERAL INDICATION: High-risk screening MRI CLINICAL INFORMATION: 49-year-old with history of syringometous tumorright breast and dense breasts. History of unspecified lump rightsubareolar breast. History of abnormal inconclusive findings on diagnosticimaging. On patient MRI questionnaire, patient reports a right breast biopsy May 2024 and last mammogram [id number]. COMPARISON: No priors available at the time of this interpretation. TECHNIQUE: Utilizing a high-field scanner and dedicated breast coil, andprior to the administration of contrast, multiplanar localizer images wereobtained. Bilateral axial T1-weighted sequences without fat-saturation andfat-saturated axial T2- weighted sequences were acquired. Before and after the administration of contrast,multiple sequential dynamic T1-weighted VIBRANT sequences were obtainedthrough both breasts in the axial plane with fat-saturation. Subtractedimages were obtained and reviewed. CAD postprocessing with 3-D reconstructions, maximum intensity projectionsand kinetic analysis was performed by the interpreting radiologist at anindependent workstation and reviewed as a portion of this exam. CONTRAST DOSE: The patient received 5 mL of Gadavist intravenously withoutincident. FINDINGS: Motion artifact limits exam. Bilaterally, the patients breast tissue is extremely dense. The tissueundergoes moderate background enhancement. *Motion Corrected postcontrast series 3100- with substraction applied onDynaCad.* LEFT BREAST: No suspicious enhancement. Scattered foci of enhancement isbenign background parenchymal enhancement. No suspicious findings in theleft breast on MRI. RIGHT BREAST: No suspicious enhancement. Scattered foci of enhancement isbenign background parenchymal enhancement. Susceptibility artifact outerbreast likely reflects biopsy clip with surrounding benign-appearingpostbiopsy change. Nipple and subareolar breast and skin are unremarkable. No suspicious findings in theright breast on MRI. The axillary lymph nodes are morphologically normal. No suspiciousinternal mammary lymph nodes are seen. The imaged portions of the chestand upper abdomen are grossly unremarkable. IMPRESSION: No suspicious findings in either breast, however final assessment ispending comparison with priors. ASSESSMENT: BI-RADS 0: Incomplete: Priors Needed. RECOMMENDATIONS: Comparison with priors. 1. Our department has requested the patients prior breast imaging. 2. Once received, comparison will be made with an addendum to thisreport. Electronically signed by: Jo Santiago MD 10/15/2024 03:36 PM EDTRP Thank you for referring your patient to us, Jo Santiago MD [id number] (Electronically Signed - 10/15/2024 15:36) Copy: TAMIKA GREEN MD [facility] [address] [place] [address] PATIENT , us Myah Tapia MD IMG MRI ORDERABLES Final Re sult * ThinPrep Pap(Tube Wrapper) HPV Scr Rfx HPV 16,18/45 (08/04/2024 11:37 AM EDT) Report Report [facility] Comment: Final Gynecological Cytology Report ThinPrep Pap Test, HPV Screen, Reflex HPV Genotype SPECIMEN ADEQUACY: SATISFACTORY FOR EVALUATION; ENDOCERVICAL/TRANSFORMATION ZONE COMPONENT PRESENT. INTERPRETATION: NEGATIVE FOR INTRAEPITHELIAL LESION OR MALIGNANCY. Electronically Signed: Aby Bonner (ASCP) Electronically Signed: Yolanda Solo, CT (ASCP) CLINICAL INFORMATION: LMP: NG Clinical History: NG Biopsy Date: NG Specimen Source: Cervix, Endocervix Previous Pap Date: NG HPV RESULTS: HPV mRNA E6/E7 [id number] Approved: 08/05/24 Negative REF RANGE: Negative CPT Codes: 75563 ICD Codes: R87.610 08/04/2024 11:3 7 AM EDT 08/05/2024 5:38 AM EDT [facility] Tim Green MD LAB AMB PATH/CYTO ORDERABLE S Final Result Performing Organization Address City/State/[facility] Co de Phone Number [facility] [address], [place] from Last 3 Months Insurance [facility] PPO Care Teams Community Service Aide Relationship Specialty Start Date End Date Bk Kerr MD [address] [place] [address], [place] [address] PCP - General 01/30/23 Tamika Green MD [address] [address] Obstetrics and Gynecology 01/30/23
--- OUTSIDE RECORDS SUMMARY | 2024-10-20 14:48 | XMS_ITS | Clinical Summary ---
Author Organization [facility] Address [address] [place] [address] Care Team Providers Care Payroll Auditor Name Role Phone Te Barker MD Primary Care Provider [phone] Surgical History Surgery Date Site/Laterality Comments OVARIAN CYST REMOVAL PROCEDURE:OVARIAN CYST REMOVAL Medical History Medical History Date Comments Migraine DX:Migraine Tinnitus DX:Tinnitus Anesthesia complication DX:Anest hesia complication;COMMENT:PONV, Lightheaded, Dizzy PONV (postoperative nausea and vomiting) DX:PONV (postoperative nausea and vomiting) Hypotension DX:Hypotension Social History Tobacco Use Types Packs/Day Years Used Date Smoking Tobacco: Never Alcohol Use Standard Drinks/Week Comments No 0 (1 standard drink = 0.6 oz pur e alcohol) Comments Unknown Sex and Gender Information Value Date Recorded Sex Assigned at Not on file Legal Sex Female 3:00 PM EST Gender Identity Not on file Sexual Orientation Not on file Obstetrics History Plan of Treatment Health Maintenance Due Date Last Done Comments Breast Cancer Screening 1977 DTaP,Tdap,and Td Vaccines (1 - Tdap) 1996 Hepatitis B Vaccines (1 of 3 - 19+ 3-dose series) 1996 Cervical Cancer Screening: P ap Smear 1998 COVID-19 Vaccine ( - 2023-2 5 season) 2023 Depression Screening 04/02/2024 Influenza Vaccine (#1) 2024 HIB Vaccines Aged Out No longer eligi ble based on patient's age to complete this topic HPV Vaccines Aged Out No longer eligi ble based on patient's age to complete this topic Hepatitis A Vaccines Aged Out No long er eligible based on patient's age to complete this topic IPV Vaccines Aged Out No longer eligi ble based on patient's age to complete this topic MMR Vaccines Aged Out No longer eligi ble based on patient's age to complete this topic Meningococcal ACWY Vaccine Aged Out N o longer eligible based on patient's age to complete this topic Meningococcal B Vaccine Aged Out No l onger eligible based on patient's age to complete this topic Pneumococcal Vaccine: Pediat rics (0 to 5 Years) and At-Risk Patients (6 to 49 Years) Aged Out No longer eligible b ased on patient's age to complete this topic RSV Immunization Patients Un phu 20 months Aged Out No longer eligible b ased on patient's age to complete this topic Varicella Vaccines Aged Out No longer eligible based on patient's age to complete this topic Care Teams Payroll Auditor Relationship Specialty Start Date End Date Te Barker MD [address] [place] [id number] PCP - General Internal Medicine 12/01/16
== END 2024-10-20 15:11 | disposition home or self-care (01) ==
PROVIDERS: PCP Physician Assistant Medical; Visit Provider Physician Assistant Medical
DX: Z00.00 Encounter for general adult medical examination without abnormal findings (principal); Z13.6 Encounter for screening for cardiovascular disorders; R22.2 Localized swelling, mass and lump, trunk; D64.9 Anemia, unspecified

== ENCOUNTER → 2024-10-20 13:56 | Outpatient (BNVA) | payer BC, SELFPAY | PROVIDERS: PCP Physician Assistant Medical; Visit Provider Physician Assistant Medical | DX: Z00.00 Encounter for general adult medical examination without abnormal findings (principal); Z23 Encounter for immunization; R22.2 Localized swelling, mass and lump, trunk; D64.9 Anemia, unspecified; Z13.31 Encounter for screening for depression; Z13.30 Encounter for screening examination for mental health and behavioral disorders, unspecified | CPT/HCPCS: 90471; 90715; 96127 ==

== ENCOUNTER 2024-10-28 10:54 | Outpatient (REF) | payer BC, SELFPAY ==
--- OUTSIDE RECORDS SUMMARY | 2024-10-28 12:07 | XMS_ITS | Clinical Summary ---
Author Organization [facility] Address [address] [place] [address] Care Team Providers Care Synthetic Department Supervisor Name Role Phone Tamika Green MD Unavailable [phone] Bk Kerr MD Primary Care Provider [phone] Allergies Active Allergy Reactions Criticality Noted Date [...] Department Care Team Description 08/04/2024 Orders Only [address] [address] Tamika Green MD from Last 3 Months Social History [...] 07/22/2024 10:36 AM EDT Plan of Treatment Upcoming Encounters Date Type Department Care Team (Late st Contact Info) Description 12/09/2024 1:30 PM EDT Office Visit [facility] [address] [place] [phone] Myah Tapia MD [address] [place] [address] [phone] Health Maintenance Due Date Last Done Comments Hepatitis C Virus Screening 1977 HIV Screening 1990 DTaP/Tdap/Td Vaccines (1 - Tdap) 1996 Hepatitis B Vaccines (1 of 3 - 19+ 3-dose series) 1996 Mammogram 2017 Colonoscopy 2022 COVID-19 Vaccine (1 - 2023-2 5 season) 2023 Influenza Vaccine 10/31/2024 Pap Smear (Ages 21-65) 08/05/2027 5, 01/14/2024, 10/23/2022 Pneumococcal Vaccine: Pediatric (0-5 Years) [...] ultrasound of breast Syringoma of trunk THINPREP PAP(PRODUCTION QUALITY ANALYST) HPV SCR RFX HPV 16,18/45 Routine 08/04/2024 11:37 AM EDT from Last 3 Months Results * MRI Breast w w/o contrast-Bilateral (10/14/2024 11:24 AM EDT) Anatomical Region Laterality Modality Breast Bilateral Magnetic Resonan ce 10/14/2024 10:3 0 AM EDT 10/14/2024 10:30 AM EDT Impressions 10/15/2024 3:36 PM EDT 1. Status post ultrasound-guided core needle biopsy of the right breast at 9:00 1 CFN targeting a 5 mm oval circumscribed mass seen on screening breast ultrasound without mammographic correlate on 05/12/2024. 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 On MRI, the biopsy clip (ribbon) is associated with 12 mm of low level underlying focal nonmass enhancement with subthreshold kinetics, which is consistent with these pathology results and postbiopsy change, BI-RADS 4. Surgical excision is recommended. 2. No MRI findings of malignancy in the left breast, BI-RADS 2. Benign. ASSESSMENT: BI-RADS 4: Suspicious. RECOMMENDATIONS: Surgical Management Recommend surgical excision of the right breast biopsy site 9:00 1 CFN. Electronically signed by: Jo Santiago MD 10/20/2024 06:38 PM EDT Thank you for referring your patient to us, Jo Santiago MD [phone] (Electronically Signed - 10/20/2024 18:38) Copy: TAMIKA GREEN MD WHCT- [facility] WOMEN FILLING STATION EQUIPMENT MECHANIC [address] [address] PATIENT , Original Report: EXAMINATION: MR BREAST WITHOUT AND WITH CONTRAST, [...] Jo Santiago MD 10/15/2024 03:36 PM EDT Thank you for referring your patient to us, Jo Santiago MD [phone] (Electronically Signed - 10/15/2024 15:36) Copy: TAMIKA GREEN MD WHCT- CT WOMEN FILLING STATION EQUIPMENT MECHANIC [address] [place] [address], [place] [address] PATIENT , Narrative 10/15/2024 3:36 PM EDT Addendum: ADDENDUM #1 ADDENDUM: The patients prior breast imaging has now become available for review. Revised report as follows. COMPARISON: 05/12/2024 ultrasound biopsy and postbiopsy mammogram. 04/28/2024 screening breast ultrasound. Mammograms 02/11/2024, 02/05/2023, 08/31/2020, 05/17/2017, and baseline mammogram dated 05/14/2017. REVISED REPORT FOLLOWS: Procedure Note Jo Santiago MD - 10/20/2024 Addendum: ADDENDUM #1 ADDENDUM: The patients prior breast imaging has now become available forreview. Revised report as follows. COMPARISON: 05/12/2024 ultrasound biopsy and postbiopsy mammogram.04/28/2024 screening breast ultrasound. Mammograms 02/11/2024, 02/05/2023,08/31/2020, 05/17/2017, and baseline mammogram dated 05/14/2017. REVISED REPORT FOLLOWS: IMPRESSION: 1. Status post ultrasound-guided core needle biopsy of the right breast at9:00 1 CFN targeting a 5 mm oval circumscribed mass seen on screeningbreast ultrasound without mammographic correlate on 05/12/2024. Pathologyresults yielded syringomatous tumor versus low-grade adenocarcinoma and complete surgical excision of thislesion was recommended for definitive classification, per clinical notedated 05/16/2024. On MRI, the biopsy clip (ribbon) is associated with 12 mmof low level underlying focal nonmass enhancement with subthreshold kinetics, which is consistent withthese pathology results and postbiopsy change, BI-RADS 4. Surgicalexcision is recommended. 2. No MRI findings of malignancy in the left breast, BI-RADS 2. Benign. ASSESSMENT: BI-RADS 4: Suspicious. RECOMMENDATIONS: Surgical Management Recommend surgical excision of the right breast biopsy site 9:00 1 CFN. Electronically signed by: Jo Santiago MD 10/20/2024 06:38 PM EDTRP Thank you for referring your patient to us, Jo Santiago MD [phone] (Electronically Signed - 10/20/2024 18:38) Copy: TAMIKA GREEN MD WHCT- CT WOMEN FILLING STATION EQUIPMENT MECHANIC [address] [place] [address] PATIENT , Original Report: EXAMINATION: MR BREAST WITHOUT AND WITH CONTRAST, BILATERAL INDICATION: High-risk screening MRI CLINICAL INFORMATION: 49-year-old with history of syringometous tumorright breast and dense breasts. History of unspecified lump rightsubareolar breast. History of abnormal inconclusive findings on diagnosticimaging. On patient MRI questionnaire, patient reports a right breast biopsy May 2024 and last mammogram [id number]. COMPARISON: No priors available at the time [...] No suspicious findings in either breast, however finalassessment is pending comparison with priors. ASSESSMENT: BI-RADS 0: Incomplete: Priors Needed. RECOMMENDATIONS: Comparison with priors. 1. Our department has requested the patients prior breast imaging. 2. Once received, comparison will be made with an addendum to thisreport. Electronically signed by: Jo Santiago MD 10/15/2024 03:36 PM EDTRP Thank you for referring your patient to us, Jo Santiago MD [phone] (Electronically Signed - 10/15/2024 15:36) Copy: TAMIKA GREEN MD WHCT- CT WOMEN FILLING STATION EQUIPMENT MECHANIC [address] [address] PATIENT , us Myah Tapia MD IMG MRI ORDERABLES Edited R esult - Final * ThinPrep Pap(Key Carrier) HPV Scr Rfx HPV 16,18/45 (08/04/2024 11:37 AM EDT) Report Report [facility] Comment: Final Gynecological Cytology Report ThinPrep Pap Test, HPV Screen, Reflex HPV Genotype SPECIMEN ADEQUACY: SATISFACTORY FOR EVALUATION; ENDOCERVICAL/TRANSFORMATION ZONE COMPONENT PRESENT. INTERPRETATION: NEGATIVE FOR INTRAEPITHELIAL LESION OR MALIGNANCY. Electronically Signed: Aby Bonner CT (ASCP) Electronically Signed: Yolanda Solo CT (ASCP) CLINICAL INFORMATION: LMP: NG Clinical History: NG Biopsy Date: NG Specimen Source: Cervix, Endocervix Previous Pap Date: NG HPV RESULTS: HPV mRNA E6/E7 [id number] Approved: 08/05/24 Negative REF RANGE: Negative CPT Codes: 45742 ICD Codes: R87.610 08/04/2024 11:3 7 AM EDT 08/05/2024 5:38 AM EDT Tamika Green MD LAB AMB PATH/CYTO ORDERABLE S Final Result [facility] [address] [place], [place] from Last [address] [employer] [address] PPO Care Teams Synthetic Department Supervisor Relationship Specialty Start Date End Date Bk Kerr MD [address] [place] [id number] PCP - General 01/30/23 Tamika Green MD [address] [facility] [address] [place] [address] Obstetrics and Gynecology 01/30/23
--- OUTSIDE RECORDS SUMMARY | 2024-10-28 12:07 | XMS_ITS | Data Portability ---
Author Organization [place] - [facility], [facility] Address [address] [place] [address] Care Team Providers Care Medical Technologist Hematology Name Role Phone SULEMA GRANDE Primary Care Provider [phone] Assessment Encounter Date Assessment Date Assessment LastModified [...] within 2-3 days of surgery at a [facility] - Pre-op clearance indicated. Patient is [...] Details Last Modified Time Details Appointments ANNUAL SELF PAY COLLECTOR 15 2024 11:45A M Tamika Freeman MD Not available Not available Not available Lab pap, IG + HPV 2024 025 [facility], [address] [place] [address], [id number] 08/08/2024 09:21:55 surgical pathology study 2023 024 [facility], [address] [place] [address], [id number] 01/31/2024 10:17:27 pap, IG + HPV 2023 024 [email or web address] [facility], [address] [place] [address], [id number] 01/21/2024 09:41:05 Referral None recorded. Procedures None recorded. Surgeries None recorded. Imaging MAMMO, screening , digital, bilateral , w/ CAD 2023 024 [email or web address] [facility] (Radiology), [address] [place], [address], 02/04/2024 08:46:35 MAMMO, screening , digital, bilateral , w/ CAD 2023 024 [email or web address] [facility], [address] [place], [address], 01/21/2024 09:40:31 Medication Orders None recorded. Patient TargetsNo targets recorded. Patient Instructions Encounter Date Encounter Id Patient Instructions Last Modified By Organization Details Last Modified Time 07/09/2023 [id number] Pt with ovarian cyst. Opted to cancel surgery and observe It was stable in size and she is asymptomatic repeat USN for size RTC for annual No charge for exam, shouldn't have had to come in to schedule a pelvic USN Not available 07/09/2023 11:49:53 01/14/2024 [id number] mammogram: about this test Not available 01/14/2024 [...] RTC annual/prn Not available 01/14/2024 12:39:19 01/28/2024 [id number] mammogram: about this test Not available 01/28/2024 14:09:58 abnormal Pap test: care instructions Not available 01/28/2024 14:07:18 Colpo for ASCUS/HPV+ Impression: atrophy/HPV Await path If < or = PAUL 1: PAP q 6 months If > or = PAUL 1: LEEP Precautions reviewed present for entire procedure Not available 01/28/2024 14:13:08 08/04/2024 [id number] Pt here for repeat PAP Hx of [...] DIAGN OSIS: #1- CERVI X AT 11 O'TIM CK, BIOPS Y: - CHRON IC CERVI [...] label ed 2A. CPT Codes : #1- 66806 #2- 30682 ICD Codes : #1- R87.6 19 #2- R87.6 19 Not Available [facility] [address] [place], [address] 01/09/2023 13:37:00 01/09/20 23 01/08/2023 pregn jamarcus test, urine Result negati ve Not Available In-Office Order Internal Use Only DO Not Attach Compendium DO Not Attach Compendium, Do Not Delete/merge, [id number] 01/08/2023 14:19:57 01/14/20 24 01/14/2024 HPV MRNA [...] types from this sourc e Not Available [facility] [address] [place], [address] 01/22/2024 10:10:01 01/14/20 24 01/14/2024 THINP REP [...] Elect noemi Lopez d: [place] [facility] ([facility] ) Elect noemi Lopez d: CANDIDO GOMEZ MD ----- ----- ----- ----- ----- ----- ----- ----- ----- ----- ----- ----- CLINI NIA INFOR MATIO N: LMP: NG Clini nia Histo ry: NG Biops y Date: NG Speci men [facility] e: Cervi x, Endoc ervix Previ ous Pap Date: NG HPV RESUL TS: HPV mRNA E6/E7 [id number] 99937 Appro meli: 01/14 Posit mitchell REF RANGE : Negat mitchell CPT Codes : 61253 , 76773 ICD Codes : Z01.4 19 Not Available [facility] [address] [place], [address] 01/22/2024 10:10:05 01/28/20 24 01/28/2024 TISSU E [...] proce ssing . CPT Codes : #1 43200 #2 57020 #3 22444 ICD Codes : #1 R87.6 10 #2 R87.6 10 #3 R87.6 10 Not Available [facility] [address] [place] [address], [address] 01/31/2024 10:17:27 08/05/19 25 08/04/2024 THINP REP [...] NG HPV RESUL TS: HPV mRNA E6/E7 37792 43483 Appro meli: 08/05 Negat mitchell REF RANGE : Negat mitchell CPT Codes : 23730 ICD Codes : R87.6 10 Not Available [facility] [address] [place], [address] 08/08/2024 09:21:55 08/05/19 25 08/04/2024 HPV MRNA [...] types from this sourc e Not Available [facility] [address] [place], [address] 08/08/2024 09:22:02 07/17/19 24 07/17/2023 US, pelmeredith s, compl ete RAD [email or web address] [facility] [address], [place], [address], 07/23/2023 11:21:35 02/11/20 24 02/05/2023 MAMMO , scree kathryn, digit al, bilat eral, w/ CAD No observ ation record ed. [address] [place], [address], 02/12/2024 10:53:15 02/12/20 24 02/11/2024 MAMMO , scree kathryn, digit al, bilat eral, w/ CAD No observ ation record ed. [address] (Radiology) [address] [place], [address], 02/14/2024 09:54:57 02/18/20 24 02/18/2024 US, pelvi s, compl ete RAD [facility] [employer] [facility] [id number] 03/04/2024 12:31:21 04/28/19 25 04/28/2024 US, breas t, bilat eral No observ ation record ed. [address] [facility] [address], [place], [address], 05/07/2024 14:22:58 05/12/19 25 05/12/2024 biops y, breas t, w/ ultra sound rashmi nce (PROC ) No observ ation record ed. [email or web address] [facility] [address], [place], [address], 05/21/2024 16:30:22 05/12/19 25 05/12/2024 biops y, breas t, w/ ultra sound rashmi nce (PROC ) No observ ation record ed. [email or web address] [facility] [address], [place], [address], 05/21/2024 16:30:28 05/16/19 25 05/16/2024 biops y, breas t, w/ ultra sound rashmi nce (PROC ) No observ ation record ed. [email or web address] [facility] [address], [place], [address], 05/21/2024 16:30:36 10/16/19 25 10/14/2024 MRI, breas [...] logica lly normal . No suspic ious quality assurance intern al mammar y lymph nodes are [...] patien t to us, Syed saravia MD [phone] (Elect petra leydi Signed - 2024 15:36) Copy: GREER FREEMAN MD [facility]CT- [facility] WOM[facility] HEAD AND NECK SURGEON [address] [place] [address] [phone] PATIHALINA T , [facility] ([facility]) [address] [facility] [address], [place], [address], 10/15/2024 17:44:56 10/21/19 25 10/14/2024 MRI, brereinaldo t, bilat eral, w/wo contr ast Addend um: ADDEND UM #1 ADDEND UM: The patien ts prior breast imagin g has now become availa ble for review . Revise d report as follow s. COMPAR ROBINSON: ultras ound biopsy and postbi opsy mammog briseyda. screen ing breast ultras ound. Mammog anni 2023, 023, 09/01/19 21, 018, and baseli ne mammog briseyda dated 018. REVISE D REPORT FOLLOW S: IMPRES ELIN: 1. Status post ultras ound-g uided core needle biopsy of the right breast at 9:00 1 CFN target ing a 5 mm oval circum scribe d mass seen on screen ing breast ultras ound withou t mammog raphic correl ate on . Pathol ogy result s yielde d syring omatou s tumor versus low-gr mikey adenoc arcino ma and comple te surgic al excisi on of this lesion was recomm ended for defini tive classi ficati on, per clinic al note dated . On MRI, the biopsy clip (ribbo n) is associ ated with 12 mm of low level underl leidy focal nonmas s enhanc ement with subthr eshold kineti cs, which is consis tent with these pathol ogy result s and postbi opsy change , BI-RAD S 4. Surgic al excisi on is recomm ended. 2. No MRI findin gs of malign jamarcus in the left breast , BI-RAD S 2. Benign . ASSESS MENT: BI-RAD S 4: Suspic ious. RECOMM ENDATI ONS: Surgic al Manage ment Recomm end surgic al excisi on of the right breast biopsy site 9:00 1 CFN. Electr onical ly signed by: Syed saravia MD 2024 06:38 PM EDT RP Workst ation: [id number] Thank you for referr ing your patien t to us, Syed saravia MD [phone] (Pepe holley Signed - 2024 18:38) Copy: GREER FREEMAN MD WHCT- [facility] WOMEN HEAD AND NECK SURGEON [address] [place] [address] [phone] PATIEN T , Origin al Report : EXAMIN ATION: MR BREAST WITHOU T AND [...] analys is was perfor med by [facility] radiol ogist at an indepe ndent workst [...] logica lly normal . No suspic ious quality assurance intern al mammar y lymph nodes are [...] patien t to us, Syed saravia MD [phone] (Elect petra holley Signed - 2024 15:36) Copy: GREER FREEMAN MD WHCT- [facility] WOMEN HEAD AND NECK SURGEON [address] [place] [address] [phone] JEFRY Flanagan , [facility] ([facility]) [address] [facility] [address], [place], [address], 10/21/2024 09:38:10 Result Notes Documentation Provider Name and Address [...] your patient to us, Jo Santiago MD [id number] (Electronically Signed - 10/15/2024 15:36) Copy: TAMIKA FREEMAN MD WHCT- CT WOMEN HEAD AND NECK SURGEON [address] [address] PATIENT , TAMIKA FREEMAN MD [address] [facility], 3rd Floor, [place], [address], [place] [facility] 10/15/2024 17:44:56 Mri, Breast, Bilateral, W/wo Contrast : Addendum: ADDENDUM #1 ADDENDUM: The patients prior [...] your patient to us, Jo Santiago MD [id number] (Electronically Signed - 10/20/2024 18:38) Copy: TAMIKA FREEMAN MD WHCT- CT WOMEN HEAD AND NECK SURGEON [address] [address] PATIENT , Original Report: EXAMINATION: [...] your patient to us, Jo Santiago MD [phone] (Electronically Signed - 10/15/2024 15:36) Copy: TAMIKA FREEMAN MD WHCT- CT WOMEN HEAD AND NECK SURGEON [address] [address] PATIENT , MD Carlos Alberto SAWYER [facility], [address] [place] [address], [phone], [place] - [facility] 10/21/2024 09:38:10 Problems No Known Problems Procedures Surgical History Date Name Laterality Status Provider Name and Address Organization Details Recorded Time 5 Date of Last Pap Smear completed MD Carlos Alberto SAWYER [facility], [address] [place] [address], [address], [place] - [facility] 08/08/2024 10:46:05 4 Date of Last Mammogram completed MD [facility], [address] [place] [address], [phone], [place] - [facility] 02/13/2024 09:57:49 4 Colposcopy Procedure Note completed MD Carlos Alberto SAWYER [facility], [address] [place] [address] [place], [address], [facility] 01/28/2024 14:12:10 4 Colposcopy completed TAMIKA FREEMAN MD 175 [facility], [address] [place] [address], [place], [address], [facility] 01/31/2024 10:47:57 3 Colposcopy Procedure Note completed TAMIKA FREEMAN MD 175 [facility], [address] [place] [address], [address], [facility] 01/08/2023 14:57:29 3 Endometrial Biopsy Procedure Note completed LEELA RAMIRES MD 175 [facility], [address] [place] [address], [address], [facility] 10/23/2022 13:37:17 7 Unlisted procedure spine completed TAMIKA FREEMAN MD 175 [facility], [address] [place] [address], [address], [facility] 10/17/2021 12:12:00 7 Other completed Rachel Cortes [facility] 02/27/2022 11:38:14 5 removal of ovarian cyst completed TAMIKA FREEMAN MD [address], [address], [facility] 10/17/2021 12:12:39 Imaging Results None recorded. Procedure [...] Updated DateTime 08/04/2024 152.4 cm 21.1 kg/m2 83198.98 g 96/60 mm[Hg] Dayami Jesus [facility] 08/04/2024 11:24:43 Date Recorded Body height Body mass index (BMI) Body weight Systolic And Diastolic Provider Name and Address Organization Details Last Updated DateTime 01/14/2024 152.4 cm 20.5 kg/m2 01811.2 g 96/60 mm[Hg] Rachel Lamb [facility] 01/14/2024 11:19:27 Date Recorded Body height Body mass index (BMI) Body weight Systolic And Diastolic Provider Name and Address Organization Details Last Updated DateTime 01/28/2024 152.4 cm 20.6 kg/m2 36421.64 g 110/66 mm[Hg] Marylu Rodriguez [facility] 01/28/2024 13:54:30 Date Recorded Body height Body mass index (BMI) Body weight Systolic And Diastolic Provider Name and Address Organization Details Last Updated DateTime 02/06/2023 152.4 cm 23.2 kg/m2 70051.49 g 110/60 mm[Hg] Wei Sanders [facility] 02/06/2023 12:33:02 Social History Question Answer Notes LastModified by Organizat ion Details LastModified Time Tobacco Smoking Status Never Smoker Wei Sanders [facility] 10/23/2022 12:03:22 Does Your Partner Physically Hurt [...] SNOMED-CT Code Diagnosis ICD10 Code Diagnosis Note [id number] TAMIKA FREEMAN MD CWO5 [address] [place] [address] 10/17/2021 11:03:27 10/17/2021 11:42:43 Gynecologic examination 49414417 Z01.419 Amenorrhea 18969191 N91. 2 [id number] MD MELISSA SAWYERO5 [address] [place] [address] 02/27/2022 11:26:44 03/06/2022 12:48:40 Menopausal symptom 67725076 N95.1 Uterine leiomyoma 340737 05 D25.9 Cyst of left ovary 41120 53386 0863552 N83.202 [id number] TAMIKA FREEMAN MD CWO[address] [place] [address] 07/17/2022 13:14:41 07/17/2022 13:36:56 Pruritus of vulva 83545858 L29.2 [id number] MD MELISSA BARFIELDO5 [address] [place] [address] 09/04/2022 12:08:09 09/04/2022 13:43:28 Cyst of left ovary 0728257030 3841033 N83.202 Uterine leiomyoma 043899 05 D25.9 Increased frequency of urination 066745311 R35.0 [id number] LEELA RAMIRES MD CWO[address] [place] [address] 10/23/2022 12:01:24 10/23/2022 12:36:23 Uterine leiomyoma 92120960 D25.9 Screening for malignant neoplasm of cervix 763415352 Z12.4 Pre-surger y evaluation 392898546 Z01.818 [id number] TAMIKA FREEMAN MD CWO[address] [place] [address] 01/08/2023 14:07:52 01/08/2023 14:38:09 Abnormal cervical Papanicolaou smear 904875767 R87.619 [id number] TAMIKA FREEMAN MD CWO[address] [place] [address] 8 01/29/2023 11:07:31 01/30/2023 08:41:59 Screening mammography 15487031 Z12.31 Pruritic disorder 139883 002 L29.9 [id number] LEELA RAMIRES MD CWO[address] [place] [address] 02/06/2023 12:26:49 02/06/2023 13:23:00 [id number] TAMIKA FREEMAN MD CWO[address] [place] [address] 8 07/09/2023 11:38:54 07/09/2023 11:53:21 Cyst of ovary 70056597 N83.209 [id number] TAMIKA FREEMAN MD CWO[address] [place] [address] 8 01/14/2024 11:07:24 01/14/2024 14:24:41 Gynecologic examination 63261309 Z01.419 Uterine leiomyoma 983429 05 D25.9 Screening mammography 24 329908 Z12.31 Cyst of left ovary 54289 19066 7826067 N83.202 [id number] TAMIKA FREEMAN MD CWO[address] [place] [address] 8 01/28/2024 13:39:42 01/28/2024 14:25:00 Atypical squamous cells of undetermined significance on cervical Papanicolaou smear 282307973 R87.610 Screening mammography 24 597733 Z12.31 [id number] TAMIKA FREEMAN MD CWO[address] [place] [phone] 08/04/2024 11:20:20 08/04/2024 13:40:52 Cervical atypism 84854310 R87.610 Health Concerns Section Related Observation LastModified by Organization Detai ls LastModified Time None Recorded Concern Status LastModified by Organization Details LastModified Time None Recorded Advance Directives Directive None Recorded Payers Insurance Date Sequence Insurance Name Policy Number Policy Coelho Covered Member ID Coelho Member ID Guarantor Name 08/15/2024 1 [facility] [id number] Krishna Read [id number] Gaurav Read OBGyn Episode No OBEpisode recorded.
--- OUTSIDE RECORDS SUMMARY | 2024-10-28 12:07 | XMS_ITS | Clinical Summary ---
Author Organization [facility] Address [address] [place] [address] Care Team Providers Care Yarn Hauler Name Role Phone Te Barker MD Primary Care Provider [phone] Allergies Active Allergy Reactions Criticality Noted Date [...] this topic Medical Devices Implanted Type Area Wafer Substrate Tester Device Identifier Shelf Expiration Date Model / Serial / Lot Sponge Surgiflo 8ml Hemostatic Matrix Absorbable Latex Free - [id number] - [id number] Implanted:Qty: 1 on 12/18/2016 by David Hurtado MD at [facility] Hemostatic Agent Right: Spine Lumbar [employer] 07/30/2018 [id number] / / [id number] Advance Directives For more information, please contact: [phone] Documents on File Type Date Recorded Patient Fire Official Expl anation Advance Directive and Living Will 12/18/2016 6:17 AM Advance Directive and Living Will 12/18/2016 6:15 AM Care Teams Yarn Hauler Relationship Specialty Start Date End Date Te Barker MD [address] [place] [address] PCP - General Internal Medicine 12/01/16
--- OUTSIDE RECORDS SUMMARY | 2024-10-28 12:07 | XMS_ITS | Clinical Summary ---
Author Organization [facility] Address [address] [place] [id number] Phone Care Team Providers Care Screen Tacker Name Role Phone Hector Matthews MD Primary [...] Active vitamins A,C,E-zinc-colleen er (PRESERVISION AREDS) [id number] oczi-ot-alcu Cap Take 1 capsule by mouth 2 [...] SEE NARRATIVE - 07/09/2020 4:52 PM EDT [address] [address] [employer] Law Clerk: Kirsty Chapa MD MEDICAL DOCTOR MD/MEDICAL DIRECTOR Cytology Report FINAL DIAGNOSIS A. PAP SMEAR [...] 52, 56, 58, 59, 66, 68) by Verical Onclarity HR-HPV analysis. Clinical correlation is advised. This HPV test was performed at [facility] [place], [address] [place] [address]. This test has been FDA approved for SurePath cervical cytology specimens. The accuracy and precision of this test for all other specimen sources has been verified in the Cytopathology Laboratory of the [facility] [place] and has not been cleared or approved [...] : 1975 (Age: 45) Sex: F Institution: [facility] Location: [facility] Date of Collection: 07/05/2020 Date of Reported: 07/09/2020 16:52 Results to: Joyce Amado MD us Joyce Amado MD CYTOLOGY ORDERABLES Final Res ult SEE NARRATIVE from Last 3 Months or Most Recently Relevant to Health Maintenance Insurance PPO PPO BLUE CROSS OUT OF STATE PPO BLUE CROSS OUT OF [facility] PPO BLUE CROSS OUT OF STATE PPO BLUE CROSS OUT OF STATE PPO [place] OUT [place] [address] [place] [address] [address] [place] [address] [place] [address] OUT OF STATE PPO Care Teams Screen Tacker Relationship Specialty Start Date End Date Hector Matthews MD [address] [place] [address] [address] [place] [address] PCP - General Internal Medicine 05/05/19 Additional Source Comments The information contained in this document represents components of the legal health record. It is not the complete legal health record.[facility]
--- OUTSIDE RECORDS SUMMARY | 2024-10-28 12:07 | XMS_ITS ---
Author Name [facility] Organization Unknown History of Medication Use Medication Directions Dispensed Refills Start Date End Date Stat us hydrocortisone 2.5 % topical ointment APPLY THIN COAT TO AFFECTED AREA TWICE A DAY 09/04/2022 completed prednisone 20 mg tablet TAKE 3 TABS DAILY FOR 3 DAYS, 2 TABS DAILY FOR 3 DAYS, 1 TAB DAILY FOR 3 DAYS 09/04/2022 completed triamcinolone acetonide 0.1 % topical cream APPLY FROM NECK DOWN AFTER SHOWER. PATIENT TO MIX WITH 1 POUND CERAVE CREAM. 09/04/2022 completed ID NOW COVID-19 Test Kit DIRECTED 10/17/2021 completed docusate sodium 100 mg capsule TAKE 1 CAPSULE BY MOUTH EVERY DAY active ibuprofen 800 mg tablet TAKE 1 TABLET 3 TIMES A DAY BY ORAL ROUTE. active triamcinolone acetonide 0.5 % topical cream APPLY TO AFFECTED AREA TWICE A DAY active valacyclovir 500 mg tablet TAKE 1 TABLET BY MOUTH EVERY DAY active None recorded. 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 ProblemAct [facility] Subareolar mass of right breast active 2024-07-22 ProblemAct [facility] Encounters Encounter Type Encounter Reason Primary Diagnosis Location Date Ambulatory Leiomyoma of uterus, unspecified Leiomyoma of uterus, unspecified [facility] 08/04/2024 Ambulatory Dense breasts, unspecified Dense breasts, unspecified [facility] 07/22/2024 Ambulatory Atyp squam cell of undet signfc cyto smr crvx ([facility]) Atyp squam cell of undet signfc cyto smr crvx ([facility]) [facility] 02/18/2024 Ambulatory 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 [facility] 01/28/2024 Ambulatory Unspecified ovarian cyst, left side Unspecified ovarian cyst, left side [facility] 01/14/2024 Ambulatory Unspecified ovarian cyst, unspecified side Unspecified ovarian cyst, unspecified side [facility] 07/17/2023 Ambulatory Leiomyoma of uterus, unspecified Leiomyoma of uterus, unspecified [facility] 07/09/2023 Ambulatory Disorder of breast, unspecified Disorder of breast, unspecified [facility] 02/27/2023 Ambulatory Pruritus, unspecified [facility] 02/06/2023 Ambulatory Unsp abnormal cytolog findings in specmn from cervix uteri [facility] 01/29/2023 Ambulatory Unspecified ovarian cyst, left side [facility] 01/08/2023 Ambulatory Leiomyoma of uterus, unspecified [facility] 12/05/2022 Ambulatory [facility] 10/23/2022 Ambulatory [facility] 09/04/2022 Ambulatory [facility] 08/08/2022 Ambulatory [facility] 07/17/2022 Ambulatory [facility] 05/02/2022 Ambulatory [facility] 02/27/2022 Ambulatory [facility] 10/17/2021 Care Team Organization Name Specialty Phone Email Start Date End Da walter [facility] SULEMA GRANDE Primary Care 07/24/2024 5 [facility] SULEMA GRANDE Primary Care 02/27/2023 5 [facility] SULEMA GRANDE Primary Care 02/27/2023 3 [facility] 08/01/2024 [facility] 02/27/2022 [facility] 10/17/2021 10/17/2021 [facility] Primary Care
--- OUTSIDE RECORDS SUMMARY | 2024-10-28 12:07 | XMS_ITS | Clinical Summary ---
Author Organization [facility] Address [address] [place] [address] Care Team Providers Care Distillery Miller Name Role Phone Te Barker MD Primary Care Provider [phone] Surgical History Surgery Date Site/Laterality Comments OVARIAN [...] age to complete this topic Care Teams Distillery Miller Relationship Specialty Start Date End Date Te Barker MD [address] [place] [id number] PCP - General Internal Medicine 12/01/16
[2024-10-28 14:01] LABS: MANUAL DIFF FLAG NO
[2024-10-28 14:12] LABS: Hematocrit 34.8 % (37.0-47.0); Hemoglobin 11.4 g/dl (12.0-16.0); Imm Gran Abs Auto 0.00 X10*3/uL (0.00-0.03); Imm Gran Pct Auto 0.0 % (0.0-0.4); Lymphocytes Absolute Auto 1.5 X10*3/uL (1.2-4.9); Mean Corpuscular HGB Conc 32.8 g/dl (31.0-35.0); Mean Corpuscular Hemoglobin 25.5 pg (27.0-33.0); Mean Corpuscular Volume 77.9 fL (80.0-98.0); NRBC Abs Auto 0.000 X10*3/uL (0.0-0.012); NRBC Pct Auto 0.0 /100WBC (0.0-0.2); Platelet Count 188 X10*3/uL (160-400); Red Blood Count 4.47 X10*6/uL (4.20-5.50); White Blood Count 3.7 X10*3/uL (4.8-10.8)
[2024-10-28 14:43] LABS: Alanine Aminotransferase 51 U/L (0-31); Albumin Level 4.3 g/dL (3.5-5.0); Alkaline Phosphatase 68 U/L (39-117); Anion Gap 11 (12-20); Aspartate Amino Transferase 43 U/L (5-31); Blood Urea Nitrogen 6 mg/dL (9-16); Calcium 9.6 mg/dL (8.4-10.2); Carbon Dioxide 29 mmol/L (22-29); Chloride 104 mmol/L (96-108); Cholesterol 138 mg/dL (<200); Estimated Glomerular Filt Rate > 60; HDL Cholesterol 44 mg/dL (>40); Iron 61 mcg/dL (30-160); Percent Iron Saturation 24 % (15-50); Potassium 3.6 mmol/L (3.3-5.1); Sodium 140 mmol/L (135-145); Total Iron Binding Capacity 253 mcg/dL (228-428); Total Protein 7.5 g/dL (6.5-8.0); Triglycerides 100 mg/dL (<150); Unsaturated Iron Binding 192 ug/dL
[2024-10-28 14:50] LABS: Ferritin 150 ng/mL (10-250)
[2024-10-28 16:25] LABS: Free T4 (Free Thyroxine) 1.30 ng/dL (0.71-1.85)
[2024-10-28 18:44] LABS: Folate 11.1 ng/mL (> or = 4.0); Vitamin B12 249 pg/mL (200-900)
[2024-11-01 16:47] LABS: Vitamin D 25-OH, D2 <4 ng/mL; Vitamin D 25-OH, D3 9 ng/mL; Vitamin D 25-OH, Total 9 ng/mL (30-100)
== END 2024-10-28 10:55 | disposition home or self-care (01) ==
LOC: HO.WFDLDS 10:54
PROVIDERS: Visit Provider Physician Assistant Medical
DX: Z00.00 Encounter for general adult medical examination without abnormal findings (principal); Z13.6 Encounter for screening for cardiovascular disorders; M54.2 Cervicalgia; M85.80 Other specified disorders of bone density and structure, unspecified site; D64.9 Anemia, unspecified; E78.5 Hyperlipidemia, unspecified
CPT/HCPCS: 36415; 80053; 80061; 82306; 82607; 82728; 82746; 83540; 84439; 84443; 85025